=== PATIENT | female | born 2000 | race Caucasian/White ===

== ENCOUNTER 2024-04-05 02:57 | Observation (INO) ==
[2024-04-05] MEDS: PANTOprazole 40 MG/10 ML SYR IV ONE (03:46)
[2024-04-05] MEDS: ACETAMINOPHEN 1,000 MG/100 ML VIAL IV STA (03:46)
[2024-04-05] MEDS: SODIUM CHLORIDE 0.9% 1,000 ML IV ONE (03:46)
[2024-04-05] MEDS: ONDANSETRON INJ 2 MG/ML 2 ML VIAL IV STA ×2 (03:46→06:21)
[2024-04-05 03:55] LABS: Basophils # (auto) 0.07 K/uL (0.00-0.20); Basophils % (auto) 0.5 %; Eosinophils # (auto) 0.09 K/uL (0.00-0.50); Eosinophils % (auto) 0.6 %; Hematocrit (blood only) 37.4 % (37.0-47.0); Hemoglobin 12.5 g/dl (12.0-16.0); Immature Granulocytes # (auto) 0.04 K/uL (0.01-0.20); Immature Granulocytes % (auto) 0.3 %; Lymphocytes # (auto) 4.46 K/uL (1.20-3.40); Mean Corpuscular Hemoglobin 29.9 pg (25.0-34.0); Mean Corpuscular Hgb Conc 33.4 g/dL (32.0-36.0); Mean Corpuscular Volume 89.5 fL (80.0-100.0); Mean Platelet Volume 9.7 fL (9.4-12.4); Neutrophils # (auto) 8.58 K/uL (1.40-6.50); Neutrophils % (auto) 61.6 %; Platelet Count 409 K/uL (130-400); RDW Coefficient of Variation 13.5 % (11.5-14.5); RDW Standard Deviation 44.3 fL (36.4-46.3); Red Blood Count 4.18 M/uL (4.20-5.40); White Blood Count 13.94 K/ul (4.8-10.8)
[2024-04-05 04:13] LABS: Albumin Globulin Ratio 1.4 (0.9-2); Albumin Level 4.6 gm/dl (3.4-5.0); BUN Creatinine Ratio 8.3 (10-20); Bilirubin,Total 0.3 mg/dl (0.2-1.0); Calcium 9.5 mg/dl (8.6-10.3); Creatinine Clr Calc Pharmacy 122.5 ml/min; Globulin 3.2 gm/dl (2.5-4.0); Potassium 4.2 mmol/L (3.5-5.1); Total Protein 7.8 gm/dl (6.0-8.3)
[2024-04-05 04:19] LABS: Troponin I High Sensitivity 3.4 pg/ml (0-14)
[2024-04-05 04:24] LABS: Pregnancy Test, Serum Negative (Negative)
[2024-04-05] MEDS: OPTIRAY 320 125ml IV ONE (04:40)
[2024-04-05 04:57] LABS: Adenovirus PCR Not Detected (NotDetected); Bordetella parapertussis PCR Not Detected (NotDetected); Bordetella pertussis PCR Not Detected (NotDetected); Chlamydia pneumoniae PCR Not Detected (NotDetected); Coronavirus 229E PCR Not Detected (NotDetected); Coronavirus CoV-2 (COVID19)PCR Not Detected (NotDetected); Coronavirus HKU1 PCR Not Detected (NotDetected); Coronavirus NL63 PCR Not Detected (NotDetected); Coronavirus OC43PCR Not Detected (NotDetected); Human Metapneumovirus PCR Not Detected (NotDetected); Influenza A PCR Not Detected (NotDetected); Influenza B PCR Not Detected (NotDetected); Mycoplasma pneumoniae PCR Not Detected (NotDetected); Parainfluenza Virus 1 PCR Not Detected (NotDetected); Parainfluenza Virus 2 PCR Not Detected (NotDetected); Parainfluenza Virus 3 PCR Not Detected (NotDetected); Parainfluenza Virus 4 PCR Not Detected (NotDetected); Respiratory Syncytial VirusPCR Not Detected (NotDetected); Rhinovirus/Enterovirus PCR Not Detected (NotDetected)
--- NOTE | 2024-04-05 05:13 | Emergency Department Note ---
History of Present Illness General Chief complaint: Abdominal Pain Stated complaint: BACK PAIN, UPPER ABD PAIN Time Seen by Provider: 04/05/24 03:15 History of Present Illness Maximum Pain Intensity: 4 This is a 23-year-old female presenting to the emergency department with complaints of back pain radiating into her epigastric region. Patient states that she has had some intermittent symptoms for the past few days, but they are much worse tonight. She does not identify aggravating or alleviating factors. She did not have an appetite for dinner yesterday, but did have a small snack around 10 PM. The patient has not had fevers or chills. No significant nausea or vomiting. She has a history of anemia that is treated with every other day iron supplements. She has history of pseudocholinesterase deficiency. Patient has not had abdominal surgery in the past. Last menstrual period was about 3 weeks ago. Home Medications Medication Instructions Recorded Confirmed Type acetaminophen 500 mg tablet 500 mg PO Q6H PRN Pain 04/05/24 04/05/24 History calcium carbonate 500 mg PO DAILY 04/05/24 04/05/24 History cyproheptadine 4 mg tablet 4 mg PO DAILY 04/05/24 04/05/24 History escitalopram oxalate 10 mg tablet 10 mg PO DAILY 04/05/24 04/05/24 History ferrous sulfate 325 mg (65 mg 325 mg PO DAILY 04/05/24 04/05/24 History iron) tablet ibuprofen 200 mg tablet 200 mg PO Q6H PRN Pain 04/05/24 04/05/24 History norelgestromin 150 mcg-e.estradiol 1 patch topical WK 04/05/24 04/05/24 History 35 mcg/24 hr weekly transderm patch Allergies Allergy/AdvReac Type Severity Reaction Status Date / Time succinylcholine Allergy Severe Unresponsiv Verified 04/05/24 09:46 e cefdinir [From Omnicef] Allergy Rash Verified 04/05/24 09:46 Past Med/Surg History Problem List (Updated 04/06/24 @ 05:54 by Josr Noguera PA-C) Acute cholecystitis (Acute) Pseudocholinesterase deficiency Surgical History No significant past surgical history Social History Smoking Status: Never smoker Hx Alcohol Use: No Hx Substance Use: No Preferred Language: Urdu Communication Ability: Effective Photographic Printer Required: No Beliefs That Will Affect Care: None Current Living Situation: Alone Feels Safe at Home: Yes Safety Concerns: Feels Safe At This Time Assistive Devices: None Review of Systems A total of 10 systems reviewed and were otherwise negative Physical Exam Vital Signs Vital Signs - 24 hr 04/05/24 06:00 04/05/24 06:08 04/05/24 08:05 Temperature Temperature Source Pulse Rate [Finger] Pulse Rate from SpO2 Sensor 76 Respiratory Rate Respiratory Effort / Characteristics Non-Labored Respiratory Depth Normal Respiratory Pattern Blood Pressure 142/94 H 133/88 Blood Pressure [Right Arm] Blood Pressure Mean 106 103 Blood Pressure Mean [Right Arm] Blood Pressure Position [Right Arm] Pulse Oximetry 99 Oxygen Delivery Method 04/05/24 08:36 04/05/24 08:53 04/05/24 09:02 Temperature Temperature Source Pulse Rate [Finger] 68 Pulse Rate from SpO2 Sensor 69 66 Respiratory Rate 20 Respiratory Effort / Characteristics Non-Labored Spontaneous Respiratory Depth Normal Respiratory Pattern Blood Pressure 135/115 H 145/97 H Blood Pressure [Right Arm] 157/93 H Blood Pressure Mean 121 113 Blood Pressure Mean [Right Arm] 114 Blood Pressure Position [Right Arm] Pulse Oximetry 93 99 96 Oxygen Delivery Method Room Air 04/05/24 09:22 04/05/24 09:46 Temperature 36.7 C Temperature Source Oral Pulse Rate [Finger] 81 Pulse Rate from SpO2 Sensor Respiratory Rate 21 Respiratory Effort / Characteristics Non-Labored Spontaneous Respiratory Depth Normal Respiratory Pattern Regular Blood Pressure Blood Pressure [Right Arm] 158/107 H Blood Pressure Mean Blood Pressure Mean [Right Arm] 124 Blood Pressure Position [Right Arm] Sitting Pulse Oximetry 99 Oxygen Delivery Method Room Air Room Air VITALS: Vitals are noted on the nurse's note and reviewed by myself. Vital signs stable. GENERAL: Well-developed, well-nourished, white female, who is in no acute distress and resting comfortably. Patient is cooperative with the examination. HEAD: Normocephalic atraumatic. EARS: External ear normal. External auditory canals clear, tympanic membranes pearly damon without erythema or effusion bilaterally. EYES: Pupils equal round and reactive to light and accommodation. Conjunctivae without injection, sclerae without icterus. Extraocular movements intact. NOSE: Patent, turbinates without inflammation or discharge. MOUTH: Mucous membranes moist. Tonsils are not enlarged. Pharynx without erythema, blood, or exudate. Uvula midline. Airway patent. NECK: Supple without nuchal rigidity. No lymphadenopathy. No thyromegaly. Cervical spine is nontender. HEART: Regular rate and rhythm without murmurs gallops or rubs. LUNGS: Clear to auscultation bilaterally without wheezes, rales or rhonchi. No retractions or accessory muscle use. ABDOMEN: Positive normal bowel sounds x 4. Soft with diffuse tenderness throughout the abdomen on palpation. Tenderness seems to be worse in the right upper quadrant and epigastric region. No CVA tenderness. MUSCULOSKELETAL: No muscle atrophy, erythema, or edema noted. Full range of motion in all extremities. No tenderness to palpation. Normal gait. Strength 5/5 throughout. NEURO: Patient was alert and oriented to person place and time. CN II through XII grossly intact. No focal neurological deficits. Deep tendon reflexes 2+ throughout. SKIN: The skin was without rashes, erythema, edema, or bruising. Capillary refill less than 2 seconds. Course Administered Medications Ketorolac Tromethamine (Ketorolac 30 Mg/Ml Vial) 30 mg IV Q6H PRN PRN Reason: Pain & Pre PT Stop: 04/10/24 13:14 Last Admin: 04/05/24 15:40 Dose: 30 mg Documented By: DEVONTE Morphine Sulfate (Morphine Sulfate 4 Mg/Ml 1 Ml Carp\Vial) 4 mg IV Q30M PRN PRN Reason: Pain Stop: 04/19/24 06:15 Last Admin: 04/05/24 08:54 Dose: 4 mg Documented By: Admin: 04/05/24 06:21 Dose: 4 mg Documented By: DINA Oxycodone/Acetaminophen (Oxycodone/Acetaminophen 5mg/325mg Tab) 1 tab PO Q4H PRN PRN Reason: MODERATE Pain (4,5,6) & Pre PT Stop: 04/19/24 13:14 Last Admin: 04/05/24 17:15 Dose: 1 tab Documented By: Admin: 04/05/24 16:27 Dose: 1 tab Documented By: DEVONTE Oxycodone/Acetaminophen (Oxycodone/Acetaminophen 5mg/325mg Tab) 2 tab PO Q4H PRN PRN Reason: SEVERE Pain (7,8,9,10) Stop: 04/19/24 13:14 Last Admin: 04/05/24 21:06 Dose: 2 tab Documented By: EM Discontinued Medications Bupivacaine HCl/Epinephrine Bitart (Bupivacaine/Epinephrine 0.25% 1:200,000 30 Ml Vial) Confirm Administered Dose 30 ml .ROUTE .STK-MED ONE Stop: 04/05/24 09:33 Last Admin: 04/05/24 11:30 Dose: 30 ml Documented By: MARYELLEN Fentanyl Citrate (Fentanyl Citrate Pf 100 Mcg/2 Ml Vial) 50 mcg IV Q5M PRN PRN Reason: PACU Use Only-Pain Stop: 04/05/24 18:22 Last Admin: 04/05/24 13:46 Dose: 50 mcg Documented By: Admin: 04/05/24 12:37 Dose: 50 mcg Documented By: BRAN Sodium Chloride (Nss) 1,000 mls @ 999 mls/hr IV .Q1H1M ONE Stop: 04/05/24 04:37 Last Infusion: 04/05/24 05:52 Dose: Infused Documented By: Admin: 04/05/24 03:46 Dose: 999 mls/hr Documented By: DINA Acetaminophen (Ofirmev) 1,000 mg in 100 mls @ 400 mls/hr IV NOW STA Stop: 04/05/24 03:51 Last Infusion: 04/05/24 04:00 Dose: Infused Documented By: Admin: 04/05/24 03:46 Dose: 400 mls/hr Documented By: DINA Pantoprazole Sodium (Protonix) 40 mg in 10 mls @ 5 mls/min IV NOW ONE Stop: 04/05/24 03:38 Last Admin: 04/05/24 03:46 Dose: 5 mls/min Documented By: DINA Piperacillin Sod/Tazobactam Sod (Zosyn) 4.5 gm in 100 mls @ 200 mls/hr IV NOW ONE; Protocol Stop: 04/05/24 09:40 Last Infusion: 04/05/24 14:35 Dose: Infused Documented By: Admin: 04/05/24 10:02 Dose: 200 mls/hr Documented By: AUGIE Lactated Ringer's (Lr) 1,000 mls @ 15 mls/hr IV .Q24H [facility] Stop: 04/06/24 09:59 Last Infusion: 04/05/24 14:40 Dose: Infused Documented By: Admin: 04/05/24 10:02 Dose: 15 mls/hr Documented By: AUGIE Ioversol (Optiray 320 125ml) 125 ml IV ONCE ONE Stop: 04/05/24 04:41 Last Admin: 04/05/24 04:40 Dose: 118 ml Documented By: JERMAINE Ondansetron HCl (Ondansetron Inj 2 Mg/Ml 2 Ml Vial) 4 mg IV NOW STA Stop: 04/05/24 03:38 Last Admin: 04/05/24 03:46 Dose: 4 mg Documented By: DINA Ondansetron HCl (Ondansetron Inj 2 Mg/Ml 2 Ml Vial) 4 mg IV NOW STA Stop: 04/05/24 06:17 Last Admin: 04/05/24 06:21 Dose: 4 mg Documented By: DINA Zolpidem Tartrate (Zolpidem Tartrate 5 Mg Tab) 10 mg PO HS ONE Stop: 04/05/24 22:54 Last Admin: 04/05/24 22:57 Dose: 10 mg Documented By: DIVYA Medical Decision Making Differential Diagnosis Differential diagnosis includes, but is not limited to: Myocardial infarction, dysrhythmia, pericarditis, pneumothorax, aortic aneurysm/dissection, DVT/PE, anxiety, GERD, PUD, electrolyte imbalance, thyroid disorder, pneumonia, bronchitis, pancreatitis, and others Laboratory Data 04/05/24 03:40 04/05/24 03:40 Lab Results 04/05/24 04/05/24 04/05/24 Range/Units 03:40 03:54 05:30 WBC 13.94 H (4.8-10.8) K/ul RBC 4.18 L (4.20-5.40) M/uL Hgb 12.5 (12.0-16.0) g/dl Hct 37.4 (37.0-47.0) % MCV 89.5 (80.0-100.0) fL MCH 29.9 (25.0-34.0) pg MCHC 33.4 (32.0-36.0) g/dL RDW Std Deviation 44.3 (36.4-46.3) fL RDW Coeff of Eula 13.5 (11.5-14.5) % Plt Count 409 H (130-400) K/uL MPV 9.7 (9.4-12.4) fL Immature Gran % (Auto) 0.3 % Neut % (Auto) 61.6 % Lymph % (Auto) 32.0 % [place] % (Auto) 5.0 % Eos % (Auto) 0.6 % Baso % (Auto) 0.5 % Neut # (Auto) 8.58 H (1.40-6.50) K/uL Lymph # (Auto) 4.46 H (1.20-3.40) K/uL [place] # (Auto) 0.70 H (0.11-0.59) K/uL Eos # (Auto) 0.09 (0.00-0.50) K/uL Baso # (Auto) 0.07 (0.00-0.20) K/uL Immature Gran # (Auto) 0.04 (0.01-0.20) K/uL Sodium 135 L (136-145) mmol/L Potassium 4.2 (3.5-5.1) mmol/L Chloride 103 (98-107) mmol/L Carbon Dioxide 25 (21-32) mmol/L Anion Gap 7 (3-11) BUN 6 (6-23) mg/dl Creatinine 0.72 (0.6-1.2) mg/dl Est Cr Clr Drug Dosing 122.5 ml/min eGFR 121.92 BUN/Creatinine Ratio 8.3 L (10-20) Glucose 89 (70-99(Fasting)) mg/dl Calcium 9.5 (8.6-10.3) mg/dl Magnesium 2.0 (1.7-2.4) mg/dl Total Bilirubin 0.3 (0.2-1.0) mg/dl AST 30 (13-39) U/L ALT 22 (7-52) U/L Alkaline Phosphatase 54 (34-104) U/L Troponin I High Sens 3.4 (0-14) pg/ml Total Protein 7.8 (6.0-8.3) gm/dl Albumin 4.6 (3.4-5.0) gm/dl Globulin 3.2 (2.5-4.0) gm/dl Albumin/Globulin Ratio 1.4 (0.9-2) Lipase 24 (11-82) U/L HCG, Qual Negative (Negative) Urine Color Yellow Urine Appearance Clear (Clear) Urine pH 6.0 (4.5-7.5) Ur Specific Jay 1.031 H (1.000-1.030) Urine Protein Negative (Negative) Urine Glucose (UA) Negative (Negative) Urine Ketones 1+ H (Negative) Urine Blood Negative (Negative) Urine Nitrite Negative (Negative) Urine Bilirubin Negative (Negative) Urine Urobilinogen Negative (Negative) Ur Leukocyte Esterase Negative (Negative) Adenovirus (PCR) Not Detected (NotDetected) B. pertussis DNA (PCR) Not Detected (NotDetected) B.parapertussis DNA PCR Not Detected (NotDetected) C. pneumoniae DNA (PCR) Not Detected (NotDetected) Coronavirus OC43 (PCR) Not Detected (NotDetected) Coronavirus HKU1 (PCR) Not Detected (NotDetected) Coronavirus 229E (PCR) Not Detected (NotDetected) SARS-CoV-2 (PCR) Not Detected (NotDetected) Coronavirus NL63 (PCR) Not Detected (NotDetected) Human Metapneumovir PCR Not Detected (NotDetected) Influenza Type A (PCR) Not Detected (NotDetected) Influenza Type B (PCR) Not Detected (NotDetected) M. pneumoniae (PCR) Not Detected (NotDetected) Parainfluenza 1 (PCR) Not Detected (NotDetected) Parainfluenza 2 (PCR) Not Detected (NotDetected) Parainfluenza 3 (PCR) Not Detected (NotDetected) Parainfluenza 4 (PCR) Not Detected (NotDetected) RSV (PCR) Not Detected (NotDetected) Entero/Rhino (PCR) Not Detected (NotDetected) Imaging Data Radiologist's Impression: Abdomen/Pelvis CTA 04/05/24 03:37 EXAM: CT angio abdomen pelvis w con CLINICAL HISTORY: 118 ML OPTIRAY 320, PAIN AT MID BACK, RUQ AND RLQ TECHNIQUE: CTA of the abdomen and pelvis was performed with IV contrast. Coronal and sagittal reconstructive images were also obtained. One of these 3D techniques was utilized: Maximum Intensity Pixel (MIP), 3D Reconstructed Images, Volume Rendered Images, Surface Shaded Rendering. Axial non-contrast sections of the abdomen and pelvis were also obtained. One of the following dose reduction techniques was utilized for this exam.Automated exposure control, adjustment of the mA and/or kV according to patient size, and use of iterative reconstruction. CTDI: DLP: COMPARISON: None. FINDINGS: Aorta: The abdominal aorta is normal in caliber. No evidence of aneurysm, dissection, or significant atherosclerotic changes. Aortic bifurcation is unremarkable. Renal Arteries: Renal arteries are normal in size and opacification. No evidence of stenosis or occlusion. Symmetric perfusion of both kidneys. Mesenteric Arteries: Superior mesenteric artery (SMA) and inferior mesenteric artery (RACHAEL) are normal in caliber and opacification. No evidence of stenosis or occlusion. Celiac Artery: Celiac artery is normal in caliber and opacification. No evidence of stenosis or occlusion. Iliac Arteries: Common, internal, and external iliac arteries are normal in caliber and opacification. No evidence of stenosis, aneurysm, or occlusion. Venous Structures: Inferior vena cava (IVC) and major venous structures are normal in caliber and opacification. No evidence of thrombus or obstruction. Liver: Enlarged in size (21cm in span) with normal morphology. Homogeneous enhancement post-contrast. No focal hepatic lesions. Gallbladder and Biliary System: Gallbladder is overdistended. and biliary ducts. No stones or dilatation. Pancreas: Normal size and contour. Homogeneous enhancement post-contrast. No masses or cystic lesions. Spleen: Normal size and appearance. Homogeneous enhancement post-contrast. Adrenal Glands: Normal size and morphology bilaterally. No adrenal masses. Kidneys and Ureters: Normal size, shape, and position of both kidneys. Homogeneous enhancement post-contrast. No renal stones, masses, or hydronephrosis. Ureters are unremarkable. Bladder: Normal in size and wall thickness. No intraluminal masses. Normal enhancement post-contrast. Bowel: Normal appearance of the visualized bowel loops. Fecal loaded large bowel loops are seen. No evidence of obstruction, wall thickening, or abnormal dilatation. Lymph Nodes: No pathologically enlarged lymph nodes in the abdomen or pelvis. Peritoneum: No free fluid or free air in the abdomen. Bones: No lytic or sclerotic lesions. Normal alignment and bone density. Soft Tissues: Normal appearance of the visualized soft tissues. IMPRESSION: Normal CT angiography of the abdomen and pelvis. Hepatomegaly. Fecal loaded large bowel loops are seen. Electronically signed by Radhames Issa 04-05-2024 06:10 AM Chest CTA 04/05/24 03:37 EXAM: CT angio chest dissec wo/w con CLINICAL HISTORY: 118 ML OPTIRAY 320 PAIN AT MID BACK RUQ AND RLQ TECHNIQUE: Contiguous 3.[address] angiographic images of the chest were acquired with the administration of intravenous contrast. Coronal and sagittal reconstructions were obtained. One of these 3D techniques was utilized: Maximum Intensity Pixel (MIP), 3D Reconstructed Images, Volume Rendered Images, Surface Shaded Rendering. One of the following dose reduction techniques were utilized for this exam: Automated exposure control, adjustment of the mA and/or kV according to patient size, and use of iterative reconstruction. CTDI: DLP: COMPARISON: None. FINDINGS: Aorta: The thoracic aorta is normal in caliber. No evidence of aneurysm, dissection, or significant atherosclerotic changes. Aortic arch and descending thoracic aorta are unremarkable. Pulmonary Arteries: Pulmonary arteries are normal in size and opacification. No evidence of pulmonary embolism. No stenosis or filling defects. Superior Vena Cava (SVC) and Inferior Vena Cava (IVC): Normal opacification and caliber. No evidence of thrombus or obstruction. Coronary Arteries: Coronary arteries are well-opacified. No significant stenosis or atherosclerotic changes. Mediastinum: No mediastinal mass or lymphadenopathy. Normal appearance of the thymus. Heart: Normal size and morphology of the heart. No pericardial effusion. Lungs: Lungs are clear with no evidence of consolidation, nodules, or masses. No pleural effusion or thickening. Bones: No fractures or lytic/sclerotic lesions of the visualized bony structures. Normal alignment and bone density. Soft Tissues: Normal appearance of the visualized soft tissues. No abnormal masses or fluid collections. IMPRESSION: Normal CT angiography of the chest. No evidence of aortic dissection. No evidence of significant vascular abnormalities. Electronically signed by Radhames Issa 04-05-2024 06:11 AM MDM Narrative Physical exam and history were performed. Nursing notes, EMR, and Medication List were personally reviewed. No social concerns were identified as barriers to patients care. Patient appears to have pain in her back that is radiating into her abdomen. It is difficult to determine the distinct location of the patient's discomfort as she does have diffuse abdominal tenderness on palpation. The discomfort seems to be worse on the right side. She also has chest discomfort but not distinct shoulder discomfort. IV access was established and labs were obtained. Patient was hydrated with normal saline and given IV Tylenol, IV Protonix, and IV Zofran. She was sent to CT scan for dissection studies, as well as to ultrasound for evaluation of the right upper quadrant. An order was placed for continuous cardiac monitoring. The monitor shows a rate of 82 with normal sinus rhythm. Patient's blood work is as above and was reviewed. She does have a slightly elevated white count of 13.9. She does not have significant anemia or gross electrolyte imbalance. Transaminases not diagnostic. Lipase normal. BioFire negative. She is not and urine is without evidence of infection. Troponin negative. CT scans of the chest and abdomen/pelvis were independently reviewed by myself and radiology. She does not seem to have vascular issue or pneumonia to explain her symptoms. She does have an enlarged gallbladder on the CT. This was further evaluated by ultrasound which was reviewed by myself and suspicious for cholecystitis. Patient remained in stable condition until the time of shift change. Case was discussed with my colleague, Gavin Casey PA-C, who will assume care pending official radiology read of the ultrasound. Please see Mr. Casey's dictation for further patient course, plan, disposition. The chart was completed utilizing [employer] Speech Voice Recognition Software. Grammatical errors, random word insertions, pronoun errors, and incomplete sentences are an occasional consequence of this system due to software limitations, ambient noise, and hardware issues. Any formal questions or concerns about the content, text, or information contained within the body of this dictation should be directly addressed to the provider for clarification. Impression & Plan Acute cholecystitis Discharge Plan Visit Data Chief Complaint: Abdominal Pain Stated Complaint: BACK PAIN, UPPER ABD PAIN ED Provider: Maurizio Hickman ED Midlevel Provider: Gavin Casey Discharge Problem: Acute cholecystitis Patient Disposition: Admitted As Inpatient Discharge Instructions Interventions: ED Discharge Assessment Last Done: 04/05/24 09:22
[2024-04-05 05:59] LABS: Appearance Urine Clear (Clear); Bilirubin Urine Negative (Negative); Blood Urine Negative (Negative); Color Urine Yellow; Glucose Urine UA Negative (Negative); Ketones Urine 1+ (Negative); Leukocyte Esterase Urine Negative (Negative); Nitrite Urine Negative (Negative); Protein Urine Negative (Negative); Specific Gravity Urine 1.031 (1.000-1.030); Urobilinogen Urine Negative (Negative)
--- NOTE | 2024-04-05 06:10 | CT Scan Report ---
EXAM: CT angio abdomen pelvis w con CLINICAL HISTORY: 118 ML OPTIRAY 320, PAIN AT MID BACK, RUQ AND RLQ TECHNIQUE: CTA of the abdomen and pelvis was performed with IV contrast. Coronal and sagittal reconstructive images were also obtained. One of these 3D techniques was utilized: Maximum Intensity Pixel (MIP), 3D Reconstructed Images, Volume Rendered Images, Surface Shaded Rendering. Axial non-contrast sections of the abdomen and pelvis were also obtained. One of the following dose reduction techniques was utilized for this exam.Automated exposure control, adjustment of the mA and/or kV according to patient size, and use of iterative reconstruction. CTDI: DLP: COMPARISON: None. FINDINGS: Aorta: The abdominal aorta is normal in caliber. No evidence of aneurysm, dissection, or significant atherosclerotic changes. Aortic bifurcation is unremarkable. Renal Arteries: Renal arteries are normal in size and opacification. No evidence of stenosis or occlusion. Symmetric perfusion of both kidneys. Mesenteric Arteries: Superior mesenteric artery (SMA) and inferior mesenteric artery (RACHAEL) are normal in caliber and opacification. No evidence of stenosis or occlusion. Celiac Artery: Celiac artery is normal in caliber and opacification. No evidence of stenosis or occlusion. Iliac Arteries: Common, internal, and external iliac arteries are normal in caliber and opacification. No evidence of stenosis, aneurysm, or occlusion. Venous Structures: Inferior vena cava (IVC) and major venous structures are normal in caliber and opacification. No evidence of thrombus or obstruction. Liver: Enlarged in size (21cm in span) with normal morphology. Homogeneous enhancement post-contrast. No focal hepatic lesions. Gallbladder and Biliary System: Gallbladder is overdistended. and biliary ducts. No stones or dilatation. Pancreas: Normal size and contour. Homogeneous enhancement post-contrast. No masses or cystic lesions. Spleen: Normal size and appearance. Homogeneous enhancement post-contrast. Adrenal Glands: Normal size and morphology bilaterally. No adrenal masses. Kidneys and Ureters: Normal size, shape, and position of both kidneys. Homogeneous enhancement post-contrast. No renal stones, masses, or hydronephrosis. Ureters are unremarkable. Bladder: Normal in size and wall thickness. No intraluminal masses. Normal enhancement post-contrast. Bowel: Normal appearance of the visualized bowel loops. Fecal loaded large bowel loops are seen. No evidence of obstruction, wall thickening, or abnormal dilatation. Lymph Nodes: No pathologically enlarged lymph nodes in the abdomen or pelvis. Peritoneum: No free fluid or free air in the abdomen. Bones: No lytic or sclerotic lesions. Normal alignment and bone density. Soft Tissues: Normal appearance of the visualized soft tissues. IMPRESSION: Normal CT angiography of the abdomen and pelvis. Hepatomegaly. Fecal loaded large bowel loops are seen. Electronically signed by Radhames Issa 04-05-2024 06:10 AM
--- NOTE | 2024-04-05 06:11 | CT Scan Report ---
EXAM: CT angio chest dissec wo/w con CLINICAL HISTORY: 118 ML OPTIRAY 320 PAIN AT MID BACK RUQ AND RLQ TECHNIQUE: Contiguous 3.[address] angiographic images of the chest were acquired with the administration of intravenous contrast. Coronal and sagittal reconstructions were obtained. One of these 3D techniques was utilized: Maximum Intensity Pixel (MIP), 3D Reconstructed Images, Volume Rendered Images, Surface Shaded Rendering. One of the following dose reduction techniques were utilized for this exam: Automated exposure control, adjustment of the mA and/or kV according to patient size, and use of iterative reconstruction. CTDI: DLP: COMPARISON: None. FINDINGS: Aorta: The thoracic aorta is normal in caliber. No evidence of aneurysm, dissection, or significant atherosclerotic changes. Aortic arch and descending thoracic aorta are unremarkable. Pulmonary Arteries: Pulmonary arteries are normal in size and opacification. No evidence of pulmonary embolism. No stenosis or filling defects. Superior Vena Cava (SVC) and Inferior Vena Cava (IVC): Normal opacification and caliber. No evidence of thrombus or obstruction. Coronary Arteries: Coronary arteries are well-opacified. No significant stenosis or atherosclerotic changes. Mediastinum: No mediastinal mass or lymphadenopathy. Normal appearance of the thymus. Heart: Normal size and morphology of the heart. No pericardial effusion. Lungs: Lungs are clear with no evidence of consolidation, nodules, or masses. No pleural effusion or thickening. Bones: No fractures or lytic/sclerotic lesions of the visualized bony structures. Normal alignment and bone density. Soft Tissues: Normal appearance of the visualized soft tissues. No abnormal masses or fluid collections. IMPRESSION: Normal CT angiography of the chest. No evidence of aortic dissection. No evidence of significant vascular abnormalities. Electronically signed by Radhames Issa 04-05-2024 06:11 AM
[2024-04-05] MEDS: MoRPHine SULFATE 4 MG/ML 1 ML CARP\\VIAL IV PRN (06:21)
--- NOTE | 2024-04-05 07:03 | Ultrasound Report ---
EXAM: US gallbladder CLINICAL HISTORY: PREV CT 04/05/24. RUQ PAIN. TECHNIQUE: An ultrasound examination of the RUQ was performed using a high-frequency transducer in realtime and duplex. COMPARISON: CT dated 04/05/2024. FINDINGS: Liver: The liver is enlarged, measuring 21.7 cm in length. The liver appears normal in size with homogeneous echotexture. No evidence of focal lesions, cysts, or masses. Hepatic vasculature appears normal. Gallbladder: Sludge and gallstones are seen in the gallbladder. An immobile shadowing calculus is seen in the gallbladder neck measuring 4 mm. A trace of pericholecystic fluid is seen. The gallbladder wall measures 3.1 mm in thickness. Biliary Tree: Common bile duct diameter: 2.3 mm. The common bile duct is within normal limits in caliber and not dilated. No evidence of choledocholithiasis or biliary obstruction. Right Kidney: No evidence of hydronephrosis. Pancreas: The visualized pancreas appears normal. However, the evaluation is limited due to overlying bowel gas. IMPRESSION: 1. Sludge and gallstones are seen in the gallbladder, with an immobile shadowing calculus in the gallbladder neck measuring 4 mm, with a trace of pericholecystic fluid. The gallbladder wall however measures 3 mm in thickness. Imaging appearances are suggestive of acute cholecystitis. Clinical correlation is suggested. 2. No evidence of biliary dilatation (stable). 3. Enlarged liver (stable). Electronically signed by Cuong Aparicio 04-05-2024 07:03 AM
--- NOTE | 2024-04-05 07:19 | Emergency Department Note ---
ED Visit Note Patient case signed out to me at 0700 hrs. on 04/05/2024 at shift change from Josr Noguera PA-C. Please refer to his note regarding presentation and findings up until point of signout. At that time patient was pending gallbladder ultrasound. Ultrasound resulted and is as below. I discussed presentation with the on-call general surgery service, Dr. Kwan. He came to evaluate the patient. Please refer to further documentation regarding her stay. General surgery did recommended antibiotics. Initially Cipro/Flagyl considered noting the patient's Omnicef allergy. I reviewed the boxed warning for ciprofloxacin with the patient as well as benefits/risks of the antibiotics. However upon further discussion with the patient she notes that it was a suspected small rash to the abdomen as a child w/ cefdinir. No anaphylaxis. No SJS or skin peeling. Patient was able to verify with her mother that they believe she has tolerated amoxicillin/penicillins before without issue. At this time through shared medical decision making with the patient it is felt that the benefit of Zosyn outweighs the risk for antibiotic coverage of the acute cholecystitis. It is felt that the risk of Cipro outweighs benefit at this time. Patient taken to the operative suite for further evaluation and management. Please refer to further documentation regarding her stay. EXAM: US gallbladder CLINICAL HISTORY: PREV CT 04/05/24. RUQ PAIN. TECHNIQUE: An ultrasound examination of the RUQ was performed using a high-frequency transducer in realtime and duplex. COMPARISON: CT dated 04/05/2024. FINDINGS: Liver: The liver is enlarged, measuring 21.7 cm in length. The liver appears normal in size with homogeneous echotexture. No evidence of focal lesions, cysts, or masses. Hepatic vasculature appears normal. Gallbladder: Sludge and gallstones are seen in the gallbladder. An immobile shadowing calculus is seen in the gallbladder neck measuring 4 mm. A trace of pericholecystic fluid is seen. The gallbladder wall measures 3.1 mm in thickness. Biliary Tree: Common bile duct diameter: 2.3 mm. The common bile duct is within normal limits in caliber and not dilated. No evidence of choledocholithiasis or biliary obstruction. Right Kidney: No evidence of hydronephrosis. Pancreas: The visualized pancreas appears normal. However, the evaluation is limited due to overlying bowel gas. IMPRESSION: 1. Sludge and gallstones are seen in the gallbladder, with an immobile shadowing calculus in the gallbladder neck measuring 4 mm, with a trace of pericholecystic fluid. The gallbladder wall however measures 3 mm in thickness. Imaging appearances are suggestive of acute cholecystitis. Clinical correlation is suggested. 2. No evidence of biliary dilatation (stable). 3. Enlarged liver (stable). Electronically signed by Cuong Aparicio 04-05-2024 07:03 AM .
--- NOTE | 2024-04-05 08:38 | History & Physical Report ---
Date of Service April 05, 2024 Assessment & Plan (1) Acute cholecystitis: Plan: 23-year-old woman with acute cholecystitis. I discussed the risks and benefits of a laparoscopic cholecystectomy with her. All her questions were answered and she is agreeable to proceed. Will take her to the operating room at the earliest convenience. Consent has been obtained. She will be placed on antibiotics and IV fluids. Pain control. History of Present Illness Primary Care Provider: Lynn Zafar PA-C 23-year-old woman presents with a 2-week history of pain in her right upper quadrant radiating to her back. These episodes of becoming in waves and lasting for a few hours at a time. Last night she developed severe pain in her epigastric region and right upper quadrant radiating to her back and up to her right shoulder that has lasted through until today. She did have nausea associated with this. Her last meal was 10 PM last night. She denies fevers and chills. Ultrasound demonstrates acute cholecystitis with a stone in the neck of the gallbladder. Allergies Allergy/AdvReac Type Severity Reaction Status Date / Time succinylcholine Allergy Severe Unresponsiv Verified 04/05/24 04:11 e cefdinir [From Omnicef] Allergy Rash Verified 04/05/24 04:07 Past Med/Surg History Problem List (Updated 04/05/24 @ 08:39 by Fortunato Kwan MD) Acute cholecystitis Pseudocholinesterase deficiency Surgical History No significant past surgical history Social History Smoking Status: Never smoker Preferred Language: [place] Feels Safe at Home: Yes Review of Systems Review of Systems: All systems reviewed & are unremarkable except as noted in HPI & below Physical Exam Constitutional: WD/WN, vitals as above Eyes: PERRL, conjunctivae normal, anicteric sclerae Neck: trachea midline, no thyromegaly Respiratory: normal respiratory effort; no respiratory distress and no labored breathing Cardiovascular: Rate/Rhythm: regular rate and regular rhythm Gastrointestinal (Abdomen): Inspection/Auscultation: abdomen normal to inspection; abdomen not distended Percussion/Palpation: + abdomen tender ( RUQ) and abdomen soft; no guarding and abdomen not rigid Skin: no rashes, warm and dry Psychiatric: A+Ox3, euthymic affect Results & Data Results & Data Vital Signs (Past 12 Hours) Vital Signs Temp Pulse Resp BP Pulse Ox O2 Del Method 04/05/24 06:08 142/94 H 04/05/24 05:09 100 04/05/24 05:06 100 04/05/24 04:51 100 04/05/24 04:45 100 04/05/24 04:36 144/76 H 04/05/24 04:36 144/76 H 04/05/24 04:15 70 20 99 04/05/24 04:12 76 18 95 04/05/24 03:50 66 04/05/24 03:38 Room Air 04/05/24 03:09 36.6 C 80 17 156/93 H 99 Room Air Laboratory Results 04/05/24 04/05/24 04/05/24 Range/Units 05:30 03:54 03:40 WBC 13.94 H (4.8-10.8) K/ul RBC 4.18 L (4.20-5.40) M/uL Hgb 12.5 (12.0-16.0) g/dl Hct 37.4 (37.0-47.0) % MCV 89.5 (80.0-100.0) fL MCH 29.9 (25.0-34.0) pg MCHC 33.4 (32.0-36.0) g/dL RDW Std Deviation 44.3 (36.4-46.3) fL RDW Coeff of [place] 13.5 (11.5-14.5) % Plt Count 409 H (130-400) K/uL MPV 9.7 (9.4-12.4) fL Immature Gran % (Auto) 0.3 % Neut % (Auto) 61.6 % Lymph % (Auto) 32.0 % Dale % (Auto) 5.0 % Eos % (Auto) 0.6 % Baso % (Auto) 0.5 % Neut # (Auto) 8.58 H (1.40-6.50) K/uL Lymph # (Auto) 4.46 H (1.20-3.40) K/uL Dale # (Auto) 0.70 H (0.11-0.59) K/uL Eos # (Auto) 0.09 (0.00-0.50) K/uL Baso # (Auto) 0.07 (0.00-0.20) K/uL Immature Gran # (Auto) 0.04 (0.01-0.20) K/uL Sodium 135 L (136-145) mmol/L Potassium 4.2 (3.5-5.1) mmol/L Chloride 103 (98-107) mmol/L Carbon Dioxide 25 (21-32) mmol/L Anion Gap 7 (3-11) BUN 6 (6-23) mg/dl Creatinine 0.72 (0.6-1.2) mg/dl Est Cr Clr Drug Dosing 122.5 ml/min eGFR 121.92 BUN/Creatinine Ratio 8.3 L (10-20) Glucose 89 (70-99(Fasting)) mg/dl Calcium 9.5 (8.6-10.3) mg/dl Magnesium 2.0 (1.7-2.4) mg/dl Total Bilirubin 0.3 (0.2-1.0) mg/dl AST 30 (13-39) U/L ALT 22 (7-52) U/L Alkaline Phosphatase 54 (34-104) U/L Troponin I High Sens 3.4 (0-14) pg/ml Total Protein 7.8 (6.0-8.3) gm/dl Albumin 4.6 (3.4-5.0) gm/dl Globulin 3.2 (2.5-4.0) gm/dl Albumin/Globulin Ratio 1.4 (0.9-2) Lipase 24 (11-82) U/L HCG, Qual Negative (Negative) Urine Color Yellow Urine Appearance Clear (Clear) Urine pH 6.0 (4.5-7.5) Ur Specific [place] 1.031 H (1.000-1.030) Urine Protein Negative (Negative) Urine Glucose (UA) Negative (Negative) Urine Ketones 1+ H (Negative) Urine Blood Negative (Negative) Urine Nitrite Negative (Negative) Urine Bilirubin Negative (Negative) Urine Urobilinogen Negative (Negative) Ur Leukocyte Esterase Negative (Negative) Adenovirus (PCR) Not Detected (NotDetected) B. pertussis DNA (PCR) Not Detected (NotDetected) B.parapertussis DNA PCR Not Detected (NotDetected) C. pneumoniae DNA (PCR) Not Detected (NotDetected) Coronavirus OC43 (PCR) Not Detected (NotDetected) Coronavirus HKU1 (PCR) Not Detected (NotDetected) Coronavirus 229E (PCR) Not Detected (NotDetected) SARS-CoV-2 (PCR) Not Detected (NotDetected) Coronavirus NL63 (PCR) Not Detected (NotDetected) Human Metapneumovir PCR Not Detected (NotDetected) Influenza Type A (PCR) Not Detected (NotDetected) Influenza Type B (PCR) Not Detected (NotDetected) M. pneumoniae (PCR) Not Detected (NotDetected) Parainfluenza 1 (PCR) Not Detected (NotDetected) Parainfluenza 2 (PCR) Not Detected (NotDetected) Parainfluenza 3 (PCR) Not Detected (NotDetected) Parainfluenza 4 (PCR) Not Detected (NotDetected) RSV (PCR) Not Detected (NotDetected) Entero/Rhino (PCR) Not Detected (NotDetected) Diagnostic Findings EXAM: US gallbladder CLINICAL HISTORY: PREV CT 04/05/24. RUQ PAIN. TECHNIQUE: An ultrasound examination of the RUQ was performed using a high-frequency transducer in realtime and duplex. COMPARISON: CT dated 04/05/2024. FINDINGS: Liver: The liver is enlarged, measuring 21.7 cm in length. The liver appears normal in size with homogeneous echotexture. No evidence of focal lesions, cysts, or masses. Hepatic vasculature appears normal. Gallbladder: Sludge and gallstones are seen in the gallbladder. An immobile shadowing calculus is seen in the gallbladder neck measuring 4 mm. A trace of pericholecystic fluid is seen. The gallbladder wall measures 3.1 mm in thickness. Biliary Tree: Common bile duct diameter: 2.3 mm. The common bile duct is within normal limits in caliber and not dilated. No evidence of choledocholithiasis or biliary obstruction. Right Kidney: No evidence of hydronephrosis. Pancreas: The visualized pancreas appears normal. However, the evaluation is limited due to overlying bowel gas. IMPRESSION: 1. Sludge and gallstones are seen in the gallbladder, with an immobile shadowing calculus in the gallbladder neck measuring 4 mm, with a trace of pericholecystic fluid. The gallbladder wall however measures 3 mm in thickness. Imaging appearances are suggestive of acute cholecystitis. Clinical correlation is suggested. 2. No evidence of biliary dilatation (stable). 3. Enlarged liver (stable). Electronically signed by Cuong Aparicio 04-05-2024 07:03 AM Dictated: 04/05/24 0610 Transcribed:
[2024-04-05] MEDS ORDERED: ePHEDrine sulfate 50 MG/ML AMP ONE (09:23)
[2024-04-05] MEDS ORDERED: MIDAZOLAM HCL 1 MG/ML 2ML VIAL ONE (09:25)
[2024-04-05] MEDS ORDERED: fentaNYL citrate PF 100 MCG/2 ML VIAL ONE ×3 (09:25→11:11)
[2024-04-05] MEDS ORDERED: PROPOFOL IV EMULSION 10 MG/ML 20 ML VIAL IV ONE (09:26)
[2024-04-05] MEDS ORDERED: LIDOCAINE 2% 2 ML VIAL/AMP(20MG/ML) INFIL ONE ×2 (09:26)
[2024-04-05] MEDS ORDERED: ROCURONIUM BROMIDE 10 MG/ML 5 ML VIAL IV ONE (09:26)
[2024-04-05] MEDS ORDERED: ONDANSETRON INJ 2 MG/ML 2 ML VIAL ONE ×2 (09:27)
[2024-04-05] MEDS ORDERED: DEXAMETHASONE SOD INJ 4 MG/ML VIAL ONE (09:30)
[2024-04-05] MEDS: PIPERACILLIN/TAZOBACTAM 4.5 GM/100 ML BAG IV ONE (10:02)
[2024-04-05] MEDS: LACTATED RINGER'S 1,000 ML IV SCH (10:02)
--- NOTE | 2024-04-05 10:21 | Anesthesiology Consultation ---
Date of Service April 05, 2024 Assessment & Plan Chart Review Chart Review: Acceptable Risk for Surgery Consults Requested none History Surgery Operation Date: 04/05/24 11:20 Proposed Procedures p Laparoscopic Cholecystectomy - Fortunato Kwan MD Height/Weight Height: 5 ft 10 in Weight: 62.8 kg Allergies Allergy/AdvReac Type Severity Reaction Status Date / Time succinylcholine Allergy Severe Unresponsiv Verified 04/05/24 09:46 e cefdinir [From Omnicef] Allergy Rash Verified 04/05/24 09:46 Medications Home Medications Medication Instructions Recorded Confirmed Last Taken acetaminophen 500 mg tablet 500 mg PO Q6H PRN Pain 04/05/24 04/05/24 04/04/24 calcium carbonate 500 mg PO DAILY 04/05/24 04/05/24 04/04/24 cyproheptadine 4 mg tablet 4 mg PO DAILY 04/05/24 04/05/24 04/04/24 escitalopram oxalate 10 mg tablet 10 mg PO DAILY 04/05/24 04/05/24 04/04/24 ferrous sulfate 325 mg (65 mg 325 mg PO DAILY 04/05/24 04/05/24 04/04/24 iron) tablet ibuprofen 200 mg tablet 200 mg PO Q6H PRN Pain 04/05/24 04/05/24 04/04/24 norelgestromin 150 mcg-e.estradiol 1 patch topical WK 04/05/24 04/05/24 Unknown 35 mcg/24 hr weekly transderm patch Active Medications Generic Name Dose Route Start Last Admin Trade Name Freq PRN Reason Stop Dose Admin Lactated Ringer's 1,000 mls @ 15 mls/hr 04/05/24 10:00 04/05/24 10:02 Lr IV 04/06/24 09:59 15 mls/hr .Q24H SHELBY Administration Morphine Sulfate 4 mg 04/05/24 06:16 04/05/24 08:54 Morphine Sulfate 4 Mg/Ml 1 Ml Carp\Vial IV 04/19/24 06:15 4 mg Q30M PRN Administration Pain NPO Date Last Intake of Fluids: 04/05/24 Time Last Intake of Fluids: 02:45 Date Last Intake of Solids: 04/04/24 Time Last Intake of Solids: 22:30 Past Surgical History Surgical History No significant past surgical history Social History Smoking Status: Never smoker Physical Exam Vital Signs Last Vital Signs Temp 36.7 C 04/05/24 09:46 Pulse 81 04/05/24 09:46 Resp 21 04/05/24 09:46 BP 158/107 H 04/05/24 09:46 Pulse Ox 99 04/05/24 09:46 O2 Del Method Room Air 04/05/24 09:46 Testing Laboratory Results 04/05/24 03:40 04/05/24 03:40 Urine Color Yellow 04/05/24 05:30 Urine Appearance Clear (Clear) 04/05/24 05:30 Urine pH 6.0 (4.5-7.5) 04/05/24 05:30 Ur Specific [place] 1.031 (1.000-1.030) H 04/05/24 05:30 Urine Protein Negative (Negative) 04/05/24 05:30 Urine Glucose (UA) Negative (Negative) 04/05/24 05:30 Urine Ketones 1+ (Negative) H 04/05/24 05:30 Urine Nitrite Negative (Negative) 04/05/24 05:30 Ur Leukocyte Esterase Negative (Negative) 04/05/24 05:30
[2024-04-05] MEDS ORDERED: DROPERIDOL 5 MG/2 ML VIAL IV PRN (10:22)
[2024-04-05] MEDS ORDERED: ePHEDrine sulfate 50 MG/ML AMP IV PRN (10:22)
[2024-04-05] MEDS ORDERED: ONDANSETRON INJ 2 MG/ML 2 ML VIAL IV PRN ×2 (10:22→13:15)
[2024-04-05] MEDS ORDERED: ATROPINE SULFATE 0.1 MG/ML 10ML SYR IV PRN (10:22)
[2024-04-05] MEDS ORDERED: HYDROmorphone INJ 2 MG/ML SYR/VIAL IV PRN (10:22)
[2024-04-05] MEDS ORDERED: SUGAMMADEX SODIUM 200 MG/2 ML VIAL IV ONE (11:19)
[2024-04-05] MEDS ORDERED: KETOROLAC 30 MG/ML VIAL ONE (11:19)
--- NOTE | 2024-04-05 11:29 | Electrocardiogram Report ---
Test Reason : Blood Pressure : */* mmHG Vent. Rate : 67 BPM Atrial Rate : 67 BPM P-R Int : 144 ms QRS Dur : 86 ms QT Int : 432 ms P-R-T Axes : 66 69 51 degrees QTcB Int : 456 ms Normal sinus rhythm Normal ECG No previous ECGs available Confirmed by Gamal Garcia ([id number]) on 04/05/2024 11:29:12 AM Referred By: REFERRED SELF Confirmed By: Gamal Garcia
[2024-04-05] MEDS: BUPIVACAINE/EPINEPHRINE 0.25% 1:200,000 30 ML VIAL ONE (11:30)
--- NOTE | 2024-04-05 11:46 | Operative Report ---
Post Operative Report Pre & Post Diagnosis Operation Date: 04/05/24 11:20 Pre-Op Diagnosis: Acute cholecystitis Post-Op Diagnosis: Acute cholecystitis I identified the patient and participated in the time-out.: Yes Procedure Operation Date: 04/05/24 11:20 Actual Procedures p Laparoscopic Cholecystectomy(Not Applicable) - Fortunato Kwan MD Surgeon Fortunato Kwan MD Data Integration Architect None Estimated Blood Loss 5 Findings Consistent with Post-Op Diagnosis acute cholecystitis Specimens gallbladder Drains none Anesthesia Type General Complications none Description of Procedure the patient was taken to the operating room, and placed supine on the operating table. A timeout was performed, perioperative antibiotics were administered, SCD boots were placed. After adequate anesthesia and analgesia was obtained, the abdomen was prepped and draped in the normal sterile fashion. Local anesthetic was injected into and around the proposed incision sites. An incision was made with a 15 blade scalpel in the supraumbilical region and carried down to the level of the fascia. The fascia was grasped with a trach hook, and a varies needle was used to enter the abdominal cavity. The abdomen was insufflated to a pressure of 15 mmHg, and a 11 mm trocar was placed in this location. A 10 mm, 30 degree laparoscope was placed into the abdominal cavity, and the abdomen was surveyed. Two 5 mm trochars were placed along the right costal margin, and one 5 mm trocar was placed in the subxiphoid region under direct visualization. The gallbladder was grasped and retracted cephalad and laterally, exposing the triangle of [place]. Dissection began in the triangle with a combination of blunt dissection with the [place] dissector, and judicious use of the hook cautery. The cystic duct and cystic artery were dissected free circumferentially, and a critical view of safety was obtained. The cystic duct and cystic artery were clipped and transected, and the gallbladder was removed from the gallbladder fossa with the hook cautery. The camera was switched to a 5 mm, the gallbladder was placed in an Endo Catch bag, and removed via the supraumbilical port site. The camera was switched back to the 10 mm camera, and the abdomen was surveyed again. Hemostasis was checked and attended, and was excellent. The abdomen was copiously irrigated and suctioned free. Again hemostasis was checked and was excellent. All trochars were removed under direct visualization. The abdomen was desufflated. The fascia in the 11 mm port site was closed with a 0 Vicryl suture. The skin was closed with a running 4-0 Monocryl subcuticular stitch. Dermabond was applied. The patient tolerated the procedure without complication, and was transferred in stable condition to the PACU. All inst rument, needle, and sponge counts were correct at the end of the case. I attest to the content of the Intraoperative Record and any orders documented therein. Any exceptions are noted below.
[2024-04-05] MEDS: fentaNYL citrate PF 100 MCG/2 ML VIAL IV PRN (12:37)
--- NOTE | 2024-04-05 12:39 | Anesthesiology Progress Note ---
Date of Service April 05, 2024 Anesthesia Post Procedure Vital Signs Vital Signs: Temp Pulse Pulse Pulse Resp BP BP 04/05/24 12:30 37.2 C 90 15 151/96 H 04/05/24 12:20 93 H 15 151/99 H 04/05/24 12:10 87 15 159/88 H 04/05/24 12:00 89 14 153/87 H 04/05/24 11:53 37.1 C 103 H 13 149/85 H 04/05/24 09:46 36.7 C 81 21 158/107 H 04/05/24 09:22 04/05/24 09:02 145/97 H 04/05/24 08:53 68 20 157/93 H 04/05/24 08:36 135/115 H 04/05/24 08:05 133/88 04/05/24 06:08 142/94 H 04/05/24 05:09 04/05/24 05:06 04/05/24 04:51 04/05/24 04:45 04/05/24 04:36 144/76 H 04/05/24 04:36 144/76 H 04/05/24 04:15 70 20 04/05/24 04:12 76 18 04/05/24 03:50 66 04/05/24 03:38 04/05/24 03:09 36.6 C 80 17 156/93 H Pulse Ox O2 Del Method O2 Flow Rate 04/05/24 12:30 96 Room Air 04/05/24 12:20 97 Oxymask 2 04/05/24 12:10 99 Oxymask 4 04/05/24 12:00 100 Oxymask 4 04/05/24 11:53 100 Oxymask 4 04/05/24 09:46 99 Room Air 04/05/24 09:22 Room Air 04/05/24 09:02 96 04/05/24 08:53 99 Room Air 04/05/24 08:36 93 04/05/24 08:05 99 04/05/24 06:08 04/05/24 05:09 100 04/05/24 05:06 100 04/05/24 04:51 100 04/05/24 04:45 100 04/05/24 04:36 04/05/24 04:36 04/05/24 04:15 99 04/05/24 04:12 95 04/05/24 03:50 04/05/24 03:38 Room Air 04/05/24 03:09 99 Room Air Pain Intensity Abdomen: Pain Intensity: 4 Transfer of Care Handoff Completed per policy Notes Mental Status: alert / awake / arousable and participated in evaluation Patient Amnestic to Procedure: Yes Nausea / Vomiting: adequately controlled Pain: adequately controlled Airway Patency, RR, SpO2: stable & adequate BP & HR: stable & adequate Hydration State: stable & adequate Anesthetic Complications: no major complications apparent
[2024-04-05] MEDS ORDERED: diphenhydrAMINE Capsule 25 MG CAP PO PRN (13:15)
[2024-04-05] MEDS ORDERED: PROMETHAZINE 12.5 MG/50.5 ML BAG IV PRN (13:15)
[2024-04-05] MEDS ORDERED: MoRPHine SULFATE 2 MG/ML CARP IV PRN (13:15)
[2024-04-05] MEDS: KETOROLAC 30 MG/ML VIAL IV PRN (15:40)
[2024-04-05] MEDS: oxyCODONE/ACETAMINOPHEN 5mg/325mg TAB PO PRN ×2 (16:27→21:06)
[2024-04-05] MEDS: ZOLPIDEM TARTRATE 5 MG TAB PO ONE (22:57)
[2024-04-06 06:51] VITALS: BP 109/66; PULSE 80; RESP 18; TEMP 98.2; O2SAT 96
--- NOTE | 2024-04-06 09:27 | Discharge Summary ---
Date of Service April 06, 2024 Admission HPI Per Admitting Provider 23-year-old woman presents with a 2-week history of pain in her right upper quadrant radiating to her back. These episodes of becoming in waves and lasting for a few hours at a time. Last night she developed severe pain in her epigastric region and right upper quadrant radiating to her back and up to her right shoulder that has lasted through until today. She did have nausea associated with this. Her last meal was 10 PM last night. She denies fevers and chills. Ultrasound demonstrates acute cholecystitis with a stone in the neck of the gallbladder. Principal Diagnosis Acute cholecystitis Discharge Data Allergies Allergy/AdvReac Type Severity Reaction Status Date / Time succinylcholine Allergy Severe Unresponsiv Verified 04/05/24 09:46 e cefdinir [From Omnicef] Allergy Rash Verified 04/05/24 09:46 Procedures Performed Operation Date: 04/05/24 11:20 Actual Procedures p Laparoscopic Cholecystectomy(Not Applicable) - Fortunato Kwan MD Ordered Studies 04/05/24 03:37 CT angio abdomen pelvis w con Stat CT angio chest dissec wo/w con Stat US gallbladder Stat Hospital Course (1) Acute cholecystitis: 23-year-old woman seen in the emergency department noted to have acute cholecystitis. She was taken to the operating room and underwent laparoscopic cholecystectomy, the details of which are dictated in a separate operative note. Postoperatively she was transferred in stable condition to the PACU and subsequently to the floor. Throughout her hospital stay, her diet was advanced as tolerated. Pain was controlled with IV and subsequently p.o. pain medications. DVT prophylaxis with early ambulation and SCD boots. Aggressive pulmonary toilet. By the day of discharge, she is tolerating regular diet, not requiring any IV pain medications, and was discharged home in stable condition. She will follow-up in clinic in 2 weeks. Total Time Total Time Spent Total Time Spent (In Minutes): 30 Discharge Plan Discharge Items Patient Disposition: Home - Self-Care Reason For Visit: ACUTE CHOLECYSTITIS Discharge Diagnosis: acute cholecystitis Activity: Per Instructions section Sexual Activity: Wait until after follow-up appointment Exercise/Sports: Wait until after follow-up appointment Non-emergency contact: Surgeon Call non-emergency contact if: you have any medication questions, your symptoms worsen, your pain is not controlled, your pain is worsening, your pain is unusual for you, your temperature is above 101.5, your wound has increased redness, your wound has increased drainage and your wound pain has increased Follow-up/Referrals: Lynn Zafar [Other] Diet: Regular Addtl Attending Provider Instructions: Post-Surgical ~Discharge Instructions Activity Recommendations: - lifting limitation: (20 pounds for 2 weeks), - exercise/sex/sports limit: (nonstrenuous for 2 weeks), - driving or machine use limit: (none for 1 week), - Shower/bathe limit: (may shower beginning tomorrow) Diet: - Resume previous diet SPECIAL CARE INSTRUCTIONS: - May shower in 24 hours. Let water run over area and pat dry. - Leave Dermabond in place. - Call the surgeon's office with any questions or concerns - - (ex. temperature higher than 101 degrees F, excessive bleeding or pain). MEDICATIONS: - Resume previous medications unless instructed otherwise by your surgeon. - Ibuprofen 600 mg every 6 hours with food - Percocet 1 every 4 hours, as needed for pain FOLLOW UP VISIT: - If not already scheduled, please call the office to schedule a two week follow-up appointment. Office number Pending Studies at Discharge: No Stand-Alone Forms: My [facility], Smoking Cessation Medications and DC Order Prescriptions: New oxycodone-acetaminophen [Percocet] 5-325 mg tablet 1 tab PO Q6H PRN (Reason: pain) Qty: 10 0RF Continued acetaminophen [Tylenol Ex Str Rapid Release] 500 mg Tablet 500 mg PO Q6H PRN (Reason: Pain) cyproheptadine 4 mg tablet 4 mg PO DAILY calcium carbonate [Calcium 500] 500 mg calcium (1,250 mg) Tablet 500 mg PO DAILY ferrous sulfate 325 mg (65 mg iron) Tablet 325 mg PO DAILY ibuprofen 200 mg Tablet 200 mg PO Q6H PRN (Reason: Pain) norelgestromin-ethin.estradiol 150-35 mcg/24 hr patch weekly 1 patch topical WK escitalopram oxalate 10 mg tablet 10 mg PO DAILY Discharge Orders: Discharge Order (Routine); Ordered 04/06/24 Ordered By: Fortunato Kwan Admission Data Admit Date/Time: 04/05/24 11:49 Attending Provider: Fortunato Kwan Admit Provider: Fortunato Kwan Primary Care Provider: Lynn Zafar
== END 2024-04-06 10:40 | disposition home or self-care (01) ==
LOC: ED 02:57 → PACUINP 09:22 → OR 12:28 → 3N 14:25

== ENCOUNTER 2024-04-09 08:48 | Observation (INO) ==
--- NOTE | 2024-04-09 09:22 | Emergency Department Note ---
History of Present Illness General Chief complaint: Illness Stated complaint: RECENT SURG, NAUSEA/VOMITING, BURNING PEE,RT ABD P Time Seen by Provider: 04/09/24 08:57 History of Present Illness Maximum Pain Intensity: 8 This is a 23-year-old female who presents to the emergency department via private vehicle with complaints of "nausea/vomiting, dysuria, right sided abdominal pain". The patient notes that she underwent cholecystectomy on 04/05/2024. The patient states that she was doing well postoperatively but then developed abdominal discomfort with movements around 10 AM on Monday. Pain has been increasing since that time but did briefly improve on Monday. Has had some bowel movement since then without issue. Passing gas as well. She did note Monday the pain went to 10/10 and is generalized in the upper and right upper quadrant area. She also notes what she describes as some heartburn and vomiting. She reached out to the general surgery clinic and initially thought symptoms were normal postoperative findings however with now with dysuria presents here for further assessment. Current pain 8/10. Home Medications Medication Instructions Recorded Confirmed Type acetaminophen 500 mg tablet 500 mg PO Q6H PRN Pain 04/05/24 04/09/24 History calcium carbonate 500 mg PO DAILY 04/05/24 04/09/24 History cyproheptadine 4 mg tablet 4 mg PO DAILY 04/05/24 04/09/24 History escitalopram oxalate 10 mg tablet 10 mg PO DAILY 04/05/24 04/09/24 History ferrous sulfate 325 mg (65 mg 325 mg PO DAILY 04/05/24 04/09/24 History iron) tablet ibuprofen 200 mg tablet 200 mg PO Q6H PRN Pain 04/05/24 04/09/24 History norelgestromin 150 mcg-e.estradiol 1 patch topical WK 04/05/24 04/09/24 History 35 mcg/24 hr weekly transderm patch oxycodone-acetaminophen 5 mg-325 1 tab PO Q6H PRN pain #10 tabs 04/06/24 04/09/24 Rx mg tablet (Percocet) Allergies Allergy/AdvReac Type Severity Reaction Status Date / Time succinylcholine Allergy Severe Unresponsiv Verified 04/05/24 09:46 e cefdinir [From Omnicef] Allergy Rash Verified 04/05/24 09:46 Past Med/Surg History Problem List (Updated 04/09/24 @ 15:12 by OLIVIA Evans) Dysuria S/P laparoscopic cholecystectomy Abdominal pain Anxiety Acute cholecystitis (Acute) Pseudocholinesterase deficiency Surgical History No significant past surgical history Social History Smoking Status: Never smoker Hx Alcohol Use: No Hx Substance Use: No Preferred Language: Hungarian Communication Ability: Effective Rn Field Case Manager Required: No Beliefs That Will Affect Care: None Current Living Situation: Parent Other Information That Helps Us Care for You: No Feels Safe at Home: Yes Safety Concerns: Feels Safe At This Time Assistive Devices: None Review of Systems A total of 10 systems reviewed and were otherwise negative Physical Exam Vital Signs Vital Signs - 24 hr 04/09/24 09:00 04/09/24 09:21 04/09/24 09:43 Temperature 36.8 C Temperature Source Temporal Artery Scan Pulse Rate 83 74 74 Pulse Rate [Apical] Pulse Rhythm Regular Pulse Rhythm [Apical] Pulse Strength [Apical] Respiratory Rate 18 18 Respiratory Effort / Characteristics Non-Labored Spontaneous Respiratory Depth Normal Blood Pressure 133/82 Blood Pressure [Left Arm] Blood Pressure Mean 99 Blood Pressure Mean [Left Arm] Blood Pressure Position Sitting Blood Pressure Position [Left Arm] Pulse Oximetry 99 99 Oxygen Delivery Method Room Air Room Air Sepsis Recent Fever Within 48 Hours No Sepsis New/Unexplained Change in Mental Status No Sepsis Action Taken by Nursing No Action Required 04/09/24 09:50 04/09/24 11:00 04/09/24 13:00 Temperature 36.8 C 36.8 C 36.8 C Temperature Source Oral Oral Oral Pulse Rate Pulse Rate [Apical] 67 75 71 Pulse Rhythm Pulse Rhythm [Apical] Regular Regular Regular Pulse Strength [Apical] Normal Normal Normal Respiratory Rate 18 18 18 Respiratory Effort / Characteristics Non-Labored Spontaneous Non-Labored Spontaneous Non-Labored Spontaneous Respiratory Depth Normal Normal Normal Blood Pressure Blood Pressure [Left Arm] 131/80 145/70 H 124/70 Blood Pressure Mean Blood Pressure Mean [Left Arm] 97 95 88 Blood Pressure Position Blood Pressure Position [Left Arm] Lying Lying Lying Pulse Oximetry 99 99 99 Oxygen Delivery Method Room Air Room Air Room Air Sepsis Recent Fever Within 48 Hours Sepsis New/Unexplained Change in Mental Status Sepsis Action Taken by Nursing 04/09/24 14:09 Temperature Temperature Source Pulse Rate 70 Pulse Rate [Apical] Pulse Rhythm Pulse Rhythm [Apical] Pulse Strength [Apical] Respiratory Rate Respiratory Effort / Characteristics Respiratory Depth Blood Pressure Blood Pressure [Left Arm] Blood Pressure Mean Blood Pressure Mean [Left Arm] Blood Pressure Position Blood Pressure Position [Left Arm] Pulse Oximetry Oxygen Delivery Method Sepsis Recent Fever Within 48 Hours Sepsis New/Unexplained Change in Mental Status Sepsis Action Taken by Nursing VITAL SIGNS - Vital signs and nursing notes were reviewed. Stable and afebrile. GENERAL - 23-year-old female appearing her stated age who is in no acute distress. Communicates well with provider and answers questions appropriately. SKIN - Without rashes. No meningeal or petechial rash. HEAD - NC/AT. EYES - PERRL with EOMI bilaterally. Sclera anicteric. EARS - No deformities of external structures noted on gross examination bilaterally. External auditory canals without discharge or otorrhea. Tympanic membranes pearly damon without retraction or bulging. No fluid or purulent material visualized behind the TM. Handle of malleus, umbo, cone of light, pars tensa/flaccid all easily visualized. NOSE - Midline and without cyanosis. No epistaxis or purulent drainage noted. Septum midline without deviation or septal hematoma noted. MOUTH/OROPHARYNX - Without perioral cyanosis. Buccal mucosa pink and moist and without leukoplakia. Tongue midline with equal elevation of palate bilaterally. No tonsillar hypertrophy, erythema, or exudates noted. Good dentition noted. NECK - Neck with FROM. No nuchal rigidity. LUNGS - Chest wall symmetric without accessory muscle use, intercostals retractions, or central cyanosis. Normal vesicular breath sounds CTA B/L. No wheezes, rales, or rhonchi appreciated. CARDIAC - RRR ABDOMEN - Abdominal contour normal without pulsations or visible masses. BS normoactive all four quadrants. There is right sided abdominal tenderness to palpation. No guarding or rigidity. No palpable masses, hepatosplenomegaly, or ascites noted. EXTREMITIES - No clubbing or peripheral cyanosis. +5/5 strength noted in UE/LE bilaterally. NEUROLOGIC - Cranial nerves II through XII grossly intact. PSYCH -alert, oriented and pleasant on exam. Course Administered Medications Discontinued Medications Sodium Chloride (Nss) 1,000 mls @ 500 mls/hr IV .Q2H ONE Stop: 04/09/24 12:43 Last Infusion: 04/09/24 15:13 Dose: Infused Documented By: Admin: 04/09/24 10:56 Dose: 500 mls/hr Documented By: EMIR Ioversol (Optiray 320 100ml) 93 ml IV ONCE ONE Stop: 04/09/24 13:42 Last Admin: 04/09/24 13:42 Dose: 93 ml Documented By: RALPH Morphine Sulfate (Morphine Sulfate 4 Mg/Ml 1 Ml Carp\\Vial) 4 mg IV NOW STA Stop: 04/09/24 09:30 Last Admin: 04/09/24 10:48 Dose: 4 mg Documented By: EMIR Morphine Sulfate (Morphine Sulfate 2 Mg/Ml Carp) 2 mg IV NOW STA Stop: 04/09/24 11:28 Last Admin: 04/09/24 11:35 Dose: 2 mg Documented By: EMIR Ondansetron HCl (Ondansetron Inj 2 Mg/Ml 2 Ml Vial) 4 mg IV NOW STA Stop: 04/09/24 09:30 Last Admin: 04/09/24 10:48 Dose: 4 mg Documented By: EMIR Phenazopyridine HCl (Phenazopyridine Hcl 200 Mg Tab) 200 mg PO NOW STA Stop: 04/09/24 15:20 Last Admin: 04/09/24 15:31 Dose: 200 mg Documented By: TOM Medical Decision Making Laboratory Data 04/09/24 09:58 04/09/24 09:58 Lab Results 04/09/24 04/09/24 04/09/24 Range/Units 09:40 09:58 10:03 WBC 11.39 H (4.8-10.8) K/ul RBC 4.27 (4.20-5.40) M/uL Hgb 12.5 (12.0-16.0) g/dl Hct 37.7 (37.0-47.0) % MCV 88.3 (80.0-100.0) fL MCH 29.3 (25.0-34.0) pg MCHC 33.2 (32.0-36.0) g/dL RDW Std Deviation 43.7 (36.4-46.3) fL RDW Coeff of [place] 13.4 (11.5-14.5) % Plt Count 404 H (130-400) K/uL MPV 9.6 (9.4-12.4) fL Immature Gran % (Auto) 1.9 % Neut % (Auto) 77.8 % Lymph % (Auto) 15.5 % [place] % (Auto) 4.0 % Eos % (Auto) 0.4 % Baso % (Auto) 0.4 % Neut # (Auto) 8.85 H (1.40-6.50) K/uL Lymph # (Auto) 1.76 (1.20-3.40) K/uL [place] # (Auto) 0.46 (0.11-0.59) K/uL Eos # (Auto) 0.05 (0.00-0.50) K/uL Baso # (Auto) 0.05 (0.00-0.20) K/uL Immature Gran # (Auto) 0.22 H (0.01-0.20) K/uL Sodium 136 (136-145) mmol/L Potassium 4.0 (3.5-5.1) mmol/L Chloride 102 (98-107) mmol/L Carbon Dioxide 24 (21-32) mmol/L Anion Gap 10 (3-11) BUN 10 (6-23) mg/dl Creatinine 0.68 (0.6-1.2) mg/dl Est Cr Clr Drug Dosing 141.5 ml/min eGFR 126.99 BUN/Creatinine Ratio 14.7 (10-20) Glucose 83 (70-99(Fasting)) mg/dl Lactate 1.4 (0.4-2.0) mmol/L Calcium 10.3 (8.6-10.3) mg/dl Total Bilirubin 0.4 (0.2-1.0) mg/dl AST 21 (13-39) U/L ALT 26 (7-52) U/L Alkaline Phosphatase 64 (34-104) U/L Troponin I High Sens 2.4 (0-14) pg/ml Total Protein 7.9 (6.0-8.3) gm/dl Albumin 4.6 (3.4-5.0) gm/dl Globulin 3.3 (2.5-4.0) gm/dl Albumin/Globulin Ratio 1.4 (0.9-2) Lipase 42 (11-82) U/L Procalcitonin < 0.02 (0-0.5) ng/ml HCG, Qual Negative (Negative) Urine Color Dark Yellow Urine Appearance Clear (Clear) Urine pH 5.5 (4.5-7.5) Ur Specific [place] 1.039 H (1.000-1.030) Urine Protein Trace H (Negative) Urine Glucose (UA) Negative (Negative) Urine Ketones Trace H (Negative) Urine Blood Negative (Negative) Urine Nitrite Negative (Negative) Urine Bilirubin 1+ H (Negative) Urine Urobilinogen Negative (Negative) Ur Leukocyte Esterase Negative (Negative) Urine WBC (Auto) 0-5 (0-5) /hpf Urine RBC (Auto) 3-5 H (0-2) /hpf U Hyaline Cast (Auto) 0-2 (0-2) /lpf U Epithel Cells (Auto) 3-5 H (0-2) /hpf Urine Bacteria (Auto) 2+ H (None Seen) Urine Mucus Present A (None Prsent) Imaging Data Radiologist's Impression: Chest X-Ray 04/09/24 09:21 XR chest 1V portable CLINICAL HISTORY: post operative abd and chest pain COMPARISON STUDY: Chest CT April 05, 2024. FINDINGS: Lung volumes are normal. Lungs are clear. There is no pneumothorax or pleural effusion. Cardiac size is normal. Mediastinal contours are normal. There is no evidence for pulmonary edema. IMPRESSION: No acute cardiopulmonary findings. ACT 112: Negative or not required by law. Electronically signed by: Eleno Arce M.D. 04/09/2024 10:04 AM Abdomen/Pelvis CT 04/09/24 10:[address] WITH IV CONTRAST CT DOSE: 844.01 mGy.cm HISTORY: R sided abd pain, s/p cholecystectomy TECHNIQUE: Multiaxial CT images of the abdomen and pelvis were performed following the IV administration of 93 cc of Optiray, A dose lowering technique was utilized adhering to the principles of ALARA. Sagittal and coronal reconstructions were done. COMPARISON STUDY: 04/05/2024 FINDINGS: Cholecystectomy clips are now present. There is a small amount of fluid in Morison's pouch region and possibility of a bile leak. This could be evaluated with a nuclear medicine HIDA scan if clinically warranted. The liver is unremarkable. There is no bile duct distention. No pancreatic, adrenal, renal, or splenic lesion identified. There is no bowel obstruction or free air. There is no generalized ascites. Scattered air-fluid levels are present which could represent a mild ileus. In the pelvis, the urinary bladder is distended. The uterus is midline. There is a moderate amount of fluid within the cul-de-sac. The appendix is normal. There are no adnexal masses. IMPRESSION: Small fluid accumulations in Morison's pouch and in the cul-de-sac of the pelvis in a patient 4 days status post cholecystectomy. If a bile leak is of clinical concern, consider a nuclear medicine HIDA scan for further evaluation. The urinary bladder is moderately distended. ACT 112: Negative or not required by law. The above report was generated using voice recognition software. It may contain grammatical, syntax or spelling errors. Electronically signed by: Caitlin Blair M.D. 04/09/2024 2:14 PM MDM Narrative Patient was seen and evaluated as above in room C08. Review was performed of triage nursing notes and vital signs. I did review pertinent previous visits and patient history. After obtaining a thorough history and physical examination the above work up was performed. Patient presents to us today status post cholecystectomy from 04/05/24. Mild generalized right-sided abdominal tenderness. No guarding rigidity. IV access with established. Labs were drawn. There is no concerning anemia. Improving leukocytosis 11.39. No anemia. Mild thrombocytosis at 404. No emergent metabolic disturbance. No evidence of kidney or liver failure. Troponin negative. Lipase normal. Procalcitonin normal. hCG negative. Lactate wnl. Urinalysis reveals trace protein, trace ketones, 1+ bilirubin, 310 red blood cells, 3-5 epis, 2+ bacteria, urine mucus. Urine culture is pending. Will temporarily hold off on antibiotics pending further workup. EKG plus chest x-ray was performed. Per my interpretation chest x-ray negative for acute process. EKG as per my interpretation normal sinus rhythm at a rate of 68 bpm. QTc 404. QRS 82. No ST elevation. CT scan was obtained of the abdomen/pelvis. Results as above. There is comment of small fluid accumulations in Morison's pouch and in the cul-de-sac of the pelvis and the patient 4 days status post cholecystectomy. They do note that if a bile leak is of clinical concern, consider a HIDA scan for further evaluation. I discussed this with general surgery, specifically spoke to Cosetta O'Codey, RADIOLOGY CT TECHNOLOGIST at 2:24 PM. She came to evaluate the patient. She notes that plan will be admission for further assessment. Please refer to further documentation regarding her stay. During her time here patient was managed with IV analgesia, IV antiemetics. GCS: 15 In the evaluation and treatment of this patient the following differential diagnoses were entertained: Postoperative pain, PR, pneumonia, UTI, pyelonephritis, bile leak, among others. Impression & Plan S/P laparoscopic cholecystectomy, Abdominal pain Discharge Plan Visit Data Chief Complaint: Illness Stated Complaint: RECENT SURG, NAUSEA/VOMITING, BURNING PEE,RT ABD P ED Provider: Milton Goins ED Midlevel Provider: Gavin Casey Discharge Problem: S/P laparoscopic cholecystectomy, Abdominal pain Patient Disposition: Admitted As Inpatient Condition: Good
--- NOTE | 2024-04-09 10:06 | XRay Report ---
XR chest 1V portable CLINICAL HISTORY: post operative abd and chest pain COMPARISON STUDY: Chest CT April 05, 2024. FINDINGS: Lung volumes are normal. Lungs are clear. There is no pneumothorax or pleural effusion. Car diac size is normal. Mediastinal contours are normal. There is no evidence for pulmonary edema. IMPRESSION: No acute cardiopulmonary findings. ACT 112: Negative or not required by law. Electronically signed by: Eleno Arce M.D. 04/09/2024 10:04 AM
[2024-04-09 10:20] LABS: Basophils # (auto) 0.05 K/uL (0.00-0.20); Basophils % (auto) 0.4 %; Eosinophils # (auto) 0.05 K/uL (0.00-0.50); Eosinophils % (auto) 0.4 %; Hematocrit (blood only) 37.7 % (37.0-47.0); Hemoglobin 12.5 g/dl (12.0-16.0); Immature Granulocytes # (auto) 0.22 K/uL (0.01-0.20); Immature Granulocytes % (auto) 1.9 %; Lymphocytes # (auto) 1.76 K/uL (1.20-3.40); Lymphocytes % (auto) 15.5 %; Mean Corpuscular Hemoglobin 29.3 pg (25.0-34.0); Mean Corpuscular Hgb Conc 33.2 g/dL (32.0-36.0); Mean Corpuscular Volume 88.3 fL (80.0-100.0); Mean Platelet Volume 9.6 fL (9.4-12.4); Monocytes # (auto) 0.46 K/uL (0.11-0.59); Neutrophils # (auto) 8.85 K/uL (1.40-6.50); Neutrophils % (auto) 77.8 %; Platelet Count 404 K/uL (130-400); RDW Coefficient of Variation 13.4 % (11.5-14.5); RDW Standard Deviation 43.7 fL (36.4-46.3); Red Blood Count 4.27 M/uL (4.20-5.40); White Blood Count 11.39 K/ul (4.8-10.8)
[2024-04-09 10:32] LABS: Appearance Urine Clear (Clear); Bacteria Urine Automated 2+ (None Seen); Bilirubin Urine 1+ (Negative); Blood Urine Negative (Negative); Cast Urine Automated 0-2 /lpf (0-2); Color Urine Dark Yellow; Glucose Urine UA Negative (Negative); Ketones Urine Trace (Negative); Leukocyte Esterase Urine Negative (Negative); Mucus Urine Present (None Prsent); Nitrite Urine Negative (Negative); Protein Urine Trace (Negative); Specific Gravity Urine 1.039 (1.000-1.030); Urobilinogen Urine Negative (Negative); WBC Urine Automated 0-5 /hpf (0-5); pH Urine 5.5 (4.5-7.5)
[2024-04-09 10:33] LABS: Pregnancy Test, Serum Negative (Negative)
[2024-04-09 10:40] LABS: Albumin Globulin Ratio 1.4 (0.9-2); Albumin Level 4.6 gm/dl (3.4-5.0); BUN Creatinine Ratio 14.7 (10-20); Bilirubin,Total 0.4 mg/dl (0.2-1.0); Calcium 10.3 mg/dl (8.6-10.3); Creatinine Clr Calc Pharmacy 141.5 ml/min; Globulin 3.3 gm/dl (2.5-4.0); Total Protein 7.9 gm/dl (6.0-8.3)
[2024-04-09 10:46] LABS: Troponin I High Sensitivity 2.4 pg/ml (0-14)
[2024-04-09] MEDS: MoRPHine SULFATE 4 MG/ML 1 ML CARP\\VIAL IV STA (10:48)
[2024-04-09] MEDS: ONDANSETRON INJ 2 MG/ML 2 ML VIAL IV STA (10:48)
[2024-04-09] MEDS: SODIUM CHLORIDE 0.9% 1,000 ML IV ONE (10:56)
[2024-04-09] MEDS: MoRPHine SULFATE 2 MG/ML CARP IV STA (11:35)
--- NOTE | 2024-04-09 12:53 | Electrocardiogram Report ---
Test Reason : Blood Pressure : */* mmHG Vent. Rate : 68 BPM Atrial Rate : 68 BPM P-R Int : 122 ms QRS Dur : 82 ms QT Int : 380 ms P-R-T Axes : 49 53 42 degrees QTcB Int : 404 ms Normal sinus rhythm Normal ECG When compared with ECG of 05-Apr-2024 03:57, QT has shortened Confirmed by Donnell Bartlett ([id number]) on 04/09/2024 12:53:12 PM Referred By: REFERRED SELF Confirmed By: Donnell Bartlett
[2024-04-09] MEDS: OPTIRAY 320 100ml IV ONE (13:42)
--- NOTE | 2024-04-09 14:15 | CT Scan Report ---
ABDOMEN AND PELVIS CT WITH IV CONTRAST CT DOSE: 844.01 mGy.cm HISTORY: R sided abd pain, s/p cholecystectomy TECHNIQUE: Multiaxial CT images of the abdomen and pelvis were performed following the IV administrat ion of 93 cc of Optiray, A dose lowering technique was utilized adhering to the principles of ALARA. Sagittal and coronal reconstructions were done. COMPARISON STUDY: 04/05/2024 FINDINGS: Cholecystectomy clips are now present. There is a small amount of fluid in Morison's pouch region and possibility of a bile leak. This could be evaluated with a nuclear medicine HIDA scan if c linically warranted. The liver is unremarkable. There is no bile duct distention. No pancreatic, adrenal, renal, or spleni c lesion identified. There is no bowel obstruction or free air. There is no generalized ascites. Scattered air-fluid level s are present which could represent a mild ileus. In the pelvis, the urinary bladder is distended. The uterus is midline. There is a moderate amount of fluid within the cul-de-sac. The appendix is normal. There are no adnexal masses. IMPRESSION: Small fluid accumulations in Morison's pouch and in the cul-de-sac of the pelvis in a pat ient 4 days status post cholecystectomy. If a bile leak is of clinical concern, consider a nuclear ak dicine HIDA scan for further evaluation. The urinary bladder is moderately distended. ACT 112: Negative or not required by law. The above report was generated using voice recognition software. It may contain grammatical, syntax o r spelling errors. Electronically signed by: Caitlin Blair M.D. 04/09/2024 2:14 PM
--- NOTE | 2024-04-09 15:20 | History & Physical Report ---
Date of Service April 09, 2024 Assessment & Plan (1) Abdominal pain: Plan: Patient is s/p laparoscopic cholecystectomy 04/05/[address] Kwan that presented to the [facility] ER 04/09/24 with c/o, n/v, abd pain, fever/chills. CT scan in showing concerns for a small amount of fluid in Morison's pouch region and possibility of a bile leak. On exam patient is in NAD, abd is non distended, TTP RLQ, RUQ. incisions with dermbond CDI no s.s infection. VSS , afebrile. WBC 11, LFT wnl. Will admit patient HIDA scan to r/o bile leak. IV fluids for hydration, npo until results of HIDA. Ordered outpatient Lexapro for anxiety Pyridium for dysuria urinalysis noted, will await UA culture IV antiemetic PRN IV analgesic PRN Further recommendations will be forthcoming based on imaging results. (2) Anxiety: (3) Dysuria: (4) S/P laparoscopic cholecystectomy: History of Present Illness Chief Complaint: s/p laparoscopic cholecystectomy 04/05/24 with c/o, n/v, abd pain, fever/chills Primary Care Provider: Lynn Zafar PA-C Patient is a pleasant 23 yo female with PHM of anxiety, GERD, anemia, migraines and is s/p laparoscopic cholecystectomy 04/05/[address] Kwan that presented to the [facility] ER 04/09/24 with c/o, n/v, abd pain, fever/chills. Patient reports that she went home Monday and started having intermittent abdominal pain that has progressively gotten worse over the last few days with associated nausea, vomiting, fevers and chills. Pain is right sided. She has been taking OTC Tylenol and Ibuprofen with some relief. The pain is more severe at night. She has been having bowel movements and passing flatus. Reports dysuria which started this AM. CT scan in showing concerns for a small amount of fluid in Morison's pouch region and possibility of a bile leak. Allergies Allergy/AdvReac Type Severity Reaction Status Date / Time succinylcholine Allergy Severe Unresponsiv Verified 04/05/24 09:46 e cefdinir [From Omnicef] Allergy Rash Verified 04/05/24 09:46 Home Medications Medication Instructions Recorded Confirmed Type acetaminophen 500 mg tablet 500 mg PO Q6H PRN Pain 04/05/24 04/09/24 History calcium carbonate 500 mg PO DAILY 04/05/24 04/09/24 History cyproheptadine 4 mg tablet 4 mg PO DAILY 04/05/24 04/09/24 History escitalopram oxalate 10 mg tablet 10 mg PO DAILY 04/05/24 04/09/24 History ferrous sulfate 325 mg (65 mg 325 mg PO DAILY 04/05/24 04/09/24 History iron) tablet ibuprofen 200 mg tablet 200 mg PO Q6H PRN Pain 04/05/24 04/09/24 History norelgestromin 150 mcg-e.estradiol 1 patch topical WK 04/05/24 04/09/24 History 35 mcg/24 hr weekly transderm patch oxycodone-acetaminophen 5 mg-325 1 tab PO Q6H PRN pain #10 tabs 04/06/24 04/09/24 Rx mg tablet (Percocet) Past Med/Surg History Problem List (Updated 04/09/24 @ 15:12 by OLIVIA Evans) Dysuria S/P laparoscopic cholecystectomy Abdominal pain Anxiety Acute cholecystitis (Acute) Pseudocholinesterase deficiency Surgical History No significant past surgical history Social History Smoking Status: Never smoker Hx Alcohol Use: No Hx Substance Use: No Preferred Language: Guamanian Communication Ability: Effective Utility Inspector Required: No Beliefs That Will Affect Care: None Current Living Situation: Parent Other Information That Helps Us Care for You: No Feels Safe at Home: Yes Safety Concerns: Feels Safe At This Time Assistive Devices: None Review of Systems Constitutional: no fever and no chills Respiratory: no dyspnea Cardiovascular: no chest pain Gastrointestinal: + abdominal pain, + nausea and + vomitin g Genitourinary: + dysuria Musculoskeletal: no muscle weakness Integumentary: no rash Psychiatric: no confusion Physical Exam Constitutional: well developed, cooperative and comfortable; no acute distress Respiratory: normal respiratory effort and able to speak in complete sentences; no respiratory distress Cardiovascular: Rate/Rhythm: regular rate Gastrointestinal (Abdomen): Inspection/Auscultation: + abdominal surgical incision (dermabond CDI ); abdomen not distended Percussion/Palpation: + abdomen tender (RLQ/RUQ) and abdomen soft Musculoskeletal: no cyanosis or clubbing, extremities motor strength 5/5 Skin: no rashes, warm and dry Psychiatric: Orientation: alert and oriented x 3 Results & Data Results & Data Vital Signs (Past 12 Hours) Vital Signs Temp Pulse Pulse Resp BP BP Pulse Ox 04/09/24 14:09 70 04/09/24 13:00 98.2 F 71 18 124/70 99 04/09/24 11:00 98.2 F 75 18 145/70 H 99 04/09/24 09:50 98.2 F 67 18 131/80 99 04/09/24 09:43 74 04/09/24 09:21 74 18 99 04/09/24 09:00 98.2 F 83 18 133/82 99 O2 Del Method 04/09/24 14:09 04/09/24 13:00 Room Air 04/09/24 11:00 Room Air 04/09/24 09:50 Room Air 04/09/24 09:43 04/09/24 09:21 Room Air 04/09/24 09:00 Room Air Diagnostic Findings [place], [place] [phone] CT Scan Report Patient: TRANG ANNA Admit Date: 04/09/24 MR#: [id number] Address1: [address] [place] [address] Acct ID:[id number] Address2: Date: [facility] Zip: [place] [address] Age: 23 Location: ED Sex: F Room/Bed: Att Phy: Diagnosis: RECENT SURG, NAUSEA/VOMITING, BURNING PEE,RT ABD P Alix Phy: Lynn Zafar PA-C Service Date: 04/09/24 Fam Phy: Interpreting Phy: Caitlin Blair MDAdmit Phy: Ordering Phy: Gavin Casey PA-C cc: ~ ABDOMEN AND PELVIS CT WITH IV CONTRAST CT DOSE: 844.01 mGy.cm HISTORY: R sided abd pain, s/p cholecystectomy TECHNIQUE: Multiaxial CT images of the abdomen and pelvis were performed following the IV administration of 93 cc of Optiray, A dose lowering technique was utilized adhering to the principles of ALARA. Sagittal and coronal reconstructions were done. COMPARISON STUDY: 04/05/2024 FINDINGS: Cholecystectomy clips are now present. There is a small amount of fluid in Morison's pouch region and possibility of a bile leak. This could be evaluated with a nuclear medicine HIDA scan if clinically warranted. The liver is unremarkable. There is no bile duct distention. No pancreatic, adrenal, renal, or splenic lesion identified. There is no bowel obstruction or free air. There is no generalized ascites. Scattered air-fluid levels are present which could represent a mild ileus. In the pelvis, the urinary bladder is distended. The uterus is midline. There is a moderate amount of fluid within the cul-de-sac. The appendix is normal. There are no adnexal masses. IMPRESSION: Small fluid accumulations in Morison's pouch and in the cul-de-sac of the pelvis in a patient 4 days status post cholecystectomy. If a bile leak is of clinical concern, consider a nuclear medicine HIDA scan for further evaluation. The urinary bladder is moderately distended. ACT 112: Negative or not required by law. The above report was generated using voice recognition software. It may contain grammatical, syntax or spelling errors. Electronically signed by: Caitlin Blair M.D. 04/09/2024 2:14 PM Dictated: 04/09/24 1404 Transcribed: 04/09/24 1404 Chemistry Results CMP Results: Sodium 136 mmol/L (136-145) 04/09/24 Potassium 4.0 mmol/L (3.5-5.1) 04/09/24 Chloride 102 mmol/L (98-107) 04/09/24 Carbon Dioxide 24 mmol/L (21-32) 04/09/24 Anion Gap 10 (3-11) 04/09/24 BUN 10 mg/dl (6-23) 04/09/24 Creatinine 0.68 mg/dl (0.6-1.2) 04/09/24 eGFR 126.99 04/09/24 BUN/Creatinine Ratio 14.7 (10-20) 04/09/24 Glucose 83 mg/dl (70-99(Fasting)) 04/09/24 Calcium 10.3 mg/dl (8.6-10.3) 04/09/24 Total Bilirubin 0.4 mg/dl (0.2-1.0) 04/09/24 AST 21 U/L (13-39) 04/09/24 ALT 26 U/L (7-52) 04/09/24 Alkaline Phosphatase 64 U/L (34-104) 04/09/24 Total Protein 7.9 gm/dl (6.0-8.3) 04/09/24 Albumin 4.6 gm/dl (3.4-5.0) 04/09/24 Globulin 3.3 gm/dl (2.5-4.0) 04/09/24 Albumin/Globulin Ratio 1.4 (0.9-2) 04/09/24 CBC w Diff Results Results CBC w Diff Results: RBC 4.27 M/uL (4.20-5.40) 04/09/24 WBC 11.39 K/ul (4.8-10.8) H 04/09/24 Hgb 12.5 g/dl (12.0-16.0) 04/09/24 Hct 37.7 % (37.0-47.0) 04/09/24 MCV 88.3 fL (80.0-100.0) 04/09/24 MCH 29.3 pg (25.0-34.0) 04/09/24 MCHC 33.2 g/dL (32.0-36.0) 04/09/24 RDW Standard Deviation 43.7 fL (36.4-46.3) 04/09/24 RDW Coefficient of Variation 13.4 % (11.5-14.5) 04/09/24 Plt Count 404 K/uL (130-400) H 04/09/24 MPV 9.6 fL (9.4-12.4) 04/09/24 Neutrophils (%) (Auto) 77.8 % 04/09/24 Lymphocytes (%) (Auto) 15.5 % 04/09/24 Monocytes # (Auto) 0.46 K/uL (0.11-0.59) 04/09/24 Eosinophils # (Auto) 0.05 K/uL (0.00-0.50) 04/09/24 Immature Granulocyte % (Auto) 1.9 % 04/09/24 Neutrophils # (Auto) 8.85 K/uL (1.40-6.50) H 04/09/24 Lymphocytes # (Auto) 1.76 K/uL (1.20-3.40) 04/09/24 Monocytes # (Auto) 0.46 K/uL (0.11-0.59) 04/09/24 Eosinophils # (Auto) 0.05 K/uL (0.00-0.50) 04/09/24 Basophils # (Auto) 0.05 K/uL (0.00-0.20) 04/09/24 Immature Granulocyte # (Auto) 0.22 K/uL (0.01-0.20) H 04/09 Urine Analysis / Culture Results Urinalysis: Urine Color Dark Yellow 04/09/24 Urine Appearance Clear (Clear) 04/09/24 Urine pH 5.5 (4.5-7.5) 04/09/24 Ur Specific [place] 1.039 (1.000-1.030) H 04/09/24 Urine Protein Trace (Negative) H 04/09/24 Urine Glucose (UA) Negative (Negative) 04/09/24 Urine Ketones Trace (Negative) H 04/09/24 Urine Blood Negative (Negative) 04/09/24 Urine Nitrite Negative (Negative) 04/09/24 Urine Bilirubin 1+ (Negative) H 04/09/24 Urine Urobilinogen Negative (Negative) 04/09/24 Ur Leukocyte Esterase Negative (Negative) 04/09/24 Urine WBC (Auto) 0-5 /hpf (0-5) 04/09/24 Urine RBC (Auto) 3-5 /hpf (0-2) H 04/09/24 Urine Hyaline Casts (Auto) 0-2 /lpf (0-2) 04/09/24 Urine Epithelial Cells (Auto) 3-5 /hpf (0-2) H 04/09/24 Urine Bacteria (Auto) 2+ (None Seen) H 04/09/24 Urine Culture: Micro Urine Specimen 04/09/24 Code Status & VTE Plan VTE Prophylaxis Plan VTE Prophylaxis will be ordered: Yes Supervising Physician Co-Signing Physician Notes Patient seen and examined, labs and imaging reviewed, agree with above. Status post laparoscopic cholecystectomy for cholelithiasis by Dr. Kwan on 05 Apr 2024, presented with burning right upper quadrant pain, worse at night. Also describes epigastric pain as well as some dysuria. She initially felt fine after surgery until Monday night. No exacerbating factors. On exam she is afebrile with stable vitals, abdomen is soft, tender to palpation in the right upper quadrant, incisions without infection. WBC mildly elevated 11, LFTs normal. CT scan personally viewed and interpreted and agree with the assessment of small amount of fluid in the gallbladder fossa, no free air, no obvious abnormality. At this point we will obtain a HIDA scan to rule out a bile leak, have very low suspicion for choledocholithiasis given her labs. If the HIDA scan cannot be performed until tomorrow, then we will let her have clear liquids. If the HIDA scan is positive then she will need transfer for an ERCP. If it is negative, then we will continue to monitor and treat her symptoms and advance her diet as tolerated. No indication for antibiotics at this time. Dr. Kwan has been informed of the plan. PG Care Time/CCT Total # of Minutes Spent Total Time Spent with Patient: Total time spent is greater than 50% in coordination of care (as documented) at patient's floor/unit and/or counseling patient: Coding Level of Care Code 33334 INT INP/OBS CARE 1/40MIN Diagnoses Abdominal pain R10.9 Anxiety F41.9 Dysuria R30.0 S/P laparoscopic cholecystectomy Z90.49
[2024-04-09] MEDS: PHENAZOPYRIDINE HCL 200 MG TAB PO STA (15:31)
[2024-04-09] MEDS ORDERED: MoRPHine SULFATE 2 MG/ML CARP IV PRN (17:19)
[2024-04-09] MEDS ORDERED: ONDANSETRON INJ 2 MG/ML 2 ML VIAL IV PRN (17:19)
--- NOTE | 2024-04-09 17:36 | Nuclear Medicine Report ---
EXAM: NM Hepatobiliary Scan INDICATION: Evaluate for leak. TECHNIQUE: Frontal dynamic images of the abdomen and pelvis were obtained over 60 minutes following the intravenous administration of 5.5 mCi Tc99m DANNY. COMPARISON: No relevant prior studies available. FINDINGS: Liver: No abnormality noted. Homogeneous radiotracer uptake. Bile ducts: No abnormality noted. Clearly visualized. Gallbladder: Cholecystectomy. Stomach and bowel: No abnormality noted. Radiotracer activity is seen in the small bowel. Intraperitoneal space: No abnormality noted. No bile leak. IMPRESSION: Cholecystectomy. No abnormal activity to suggest bile leak. ACT 112: Negative or not required by law. Electronically signed by Reina Brown 04-09-2024 5:35 PM
[2024-04-09] MEDS: SODIUM CHLORIDE 0.9% 1,000 ML IV SCH (17:57)
[2024-04-09] MEDS: ACETAMINOPHEN 325 MG TAB PO PRN (18:40)
[2024-04-09] MEDS: IBUPROFEN 200 MG TAB PO PRN (20:55)
[2024-04-10 07:10] LABS: Basophils # (auto) 0.03 K/uL (0.00-0.20); Basophils % (auto) 0.3 %; Eosinophils # (auto) 0.13 K/uL (0.00-0.50); Eosinophils % (auto) 1.4 %; Hemoglobin 10.5 g/dl (12.0-16.0); Immature Granulocytes # (auto) 0.03 K/uL (0.01-0.20); Immature Granulocytes % (auto) 0.3 %; Lymphocytes # (auto) 2.49 K/uL (1.20-3.40); Lymphocytes % (auto) 26.1 %; Mean Corpuscular Hemoglobin 29.5 pg (25.0-34.0); Mean Corpuscular Hgb Conc 32.8 g/dL (32.0-36.0); Mean Corpuscular Volume 89.9 fL (80.0-100.0); Mean Platelet Volume 10.3 fL (9.4-12.4); Monocytes % (auto) 7.3 %; Neutrophils # (auto) 6.17 K/uL (1.40-6.50); Neutrophils % (auto) 64.6 %; Platelet Count 297 K/uL (130-400); RDW Coefficient of Variation 13.3 % (11.5-14.5); RDW Standard Deviation 44.4 fL (36.4-46.3); Red Blood Count 3.56 M/uL (4.20-5.40); White Blood Count 9.55 K/ul (4.8-10.8)
[2024-04-10] MEDS: oxyCODONE HCL IR 5 MG TAB (IMMEDIATE RELEASE) PO PRN ×2 (07:30→15:53)
[2024-04-10 07:36] LABS: Albumin Level 3.6 gm/dl (3.4-5.0); Bilirubin,Total 0.5 mg/dl (0.2-1.0); Calcium 8.6 mg/dl (8.6-10.3); Potassium 4.1 mmol/L (3.5-5.1)
[2024-04-10 07:44] LABS: Albumin Globulin Ratio 1.3 (0.9-2); BUN Creatinine Ratio 13.8 (10-20); Creatinine Clr Calc Pharmacy 148.1 ml/min; Globulin 2.7 gm/dl (2.5-4.0); Total Protein 6.3 gm/dl (6.0-8.3)
--- NOTE | 2024-04-10 07:56 | Surgery Progress Note ---
Date of Service April 10, 2024 Assessment & Plan (1) S/P laparoscopic cholecystectomy: Plan: pt s/p lap jaja on 04/[address] kwan here with abdominal pain hida scan performed yesterday negative for bile leak wbc 9.5, LFTs are within normal limits. vitals are stable pt had a good night, however having some increased pain in RUQ/R flank regions this AM. just took pain medication while in room Will allow patient to trial fulls this AM We will check up on patient later today for check in and possible further diet advancement awaiting urine culture, started on Pyridium for urinary burning Admission and Anticipated Discharge Date Admission Date: April 09, 2024 Supervising Physician Co-Signing Physician Notes Patient seen and examined, labs and imaging reviewed, agree with above. Status post laparoscopic cholecystectomy for cholelithiasis by Dr. Kwan on 05 Apr 2024, presented with burning right upper quadrant pain, worse at night. HIDA scan overnight negative for leak. She did have some pain after being woken for vital signs overnight, but it was less than it was at home. It appears that she never had her Percocet prescription filled and she may have just gotten behind on pain control. On exam she is afebrile stable vitals. Abdomen is soft, minimally tender to palpation, incisions without infection. Labs unremarkable. HIDA scan personally viewed interpret agree with the assessment if no obvious evidence of a bile leak. At this point we will advance her diet. We will attempt to get a good pain control regimen. Hopeful for discharge this afternoon with follow-up with Dr. Kwan as an outpatient. Subjective Patient says overnight went well but her pain is returning although at lesser level than before this AM. Currently pain 6/10 in severity compared to 10/10. No nausea/vomiting this AM. She is having + bowel function. Tolerating clears without worsening symptoms. Some burning with urination Physical Exam Physical Exam: awake/alert, no distress Gastrointestinal (Abdomen): Inspection/Auscultation: + abdominal surgical incision (c/d/i with skin glue, no signs of infection); abdomen not distended Percussion/Palpation: + abdomen tender (ttp in RUQ and R flank regions) and abdomen soft Results & Data Vital Signs (Past 12 Hours) Vital Signs Temp Pulse Pulse Resp BP BP Pulse Ox 04/10/24 07:10 98.8 F 76 18 103/63 97 04/09/24 20:04 98.1 F 71 16 126/80 97 O2 Del Method 04/10/24 07:10 Room Air 04/09/24 20:04 Room Air PG Care Time/CCT Total # of Minutes Spent Total Time Spent with Patient: Total time spent is greater than 50% in coordination of care (as documented) at patient's floor/unit and/or counseling patient: Coding Level of Care Code 95136 SUB INP/OBS CARE 04/06MIN Diagnoses S/P laparoscopic cholecystectomy Z90.49
[2024-04-10] MEDS: CYPROHEPTADINE HCL 4 MG TAB PO SCH (08:54)
[2024-04-10] MEDS: ESCITALOPRAM OXALATE 10 MG TAB PO SCH (08:54)
[2024-04-10] MEDS: PHENAZOPYRIDINE HCL 200 MG TAB PO PRN (10:01)
[2024-04-10] MEDS: ACETAMINOPHEN 1,000 MG/100 ML VIAL IV PRN (11:50)
[2024-04-10 15:12] VITALS: BP 107/71; PULSE 75; RESP 16; TEMP 98.2; O2SAT 96
--- NOTE | 2024-04-11 14:57 | Discharge Summary ---
Date of Service April 10, 2024 Admission HPI Per Admitting Provider Patient is a pleasant 23 yo female with PHM of anxiety, GERD, anemia, migraines and is s/p laparoscopic cholecystectomy 04/05/[address] Kwan that presented to the [facility] ER 04/09/24 with c/o, n/v, abd pain, fever/chills. Patient reports that she went home Monday and started having intermittent abdominal pain that has progressively gotten worse over the last few days with associated nausea, vomiting, fevers and chills. Pain is right sided. She has been taking OTC Tylenol and Ibuprofen with some relief. The pain is more severe at night. She has been having bowel movements and passing flatus. Reports dysuria which started this AM. CT scan in showing concerns for a small amount of fluid in Morison's pouch region and possibility of a bile leak. Principal Diagnosis post op abdominal pain s/p laparoscopic cholecystectomy Discharge Exam awake/alert, no distress Gastrointestinal (Abdomen) Inspection/Auscultation: + abdominal surgical incision (c/d/i with skin glue, no signs of infection); abdomen not distended Percussion/Palpation: + abdomen tender (ttp in RUQ and R flank regions) and abdomen soft Discharge Data Allergies Allergy/AdvReac Type Severity Reaction Status Date / Time succinylcholine Allergy Severe Unresponsiv Verified 04/05/24 09:46 e cefdinir [From Omnicef] Allergy Rash Verified 04/05/24 09:46 Consultations 04/09/24 14:38 ED Decision to Admit Stat Ordered Studies 04/09/24 10:44 CT abd pelvis IV con only Stat Hospital Course (1) S/P laparoscopic cholecystectomy: This is a 23y F who underwent a laparoscopic cholecystectomy with Dr. Kwan on 04/05/24 who presented to the [facility] ED on 04/09 with concerns for abdominal pain, nausea/vomiting. Workup in the ER with a CT a/p revealed a small fluid accumulations in Morison's pouch and in the cul-de-sac of the pelvis in a patient 4 days status post cholecystectomy. If a bile leak is of clinical concern, consider a nuclear medicine HIDA. Patients labs show wbc 11, stable hgb of 12, with unremarkable LFTs. Patient with discomfort to palpation in RUQ/epigastric region. She was admitted under the surgical service and kept npo with ivf. A HIDA scan was obtained which was negative for bile leak. After HIDA she was given a clear liquid diet. On 04/10 wbc 9 and LFTs remained within normal limits. Her pain was still present, but was overall improved. She provided a history of only utilizing Tylenol and ibuprofen for pain and was offered tramadol to go home with as well. Patient's diet was then advanced as tolerated without worsening symptoms. On 04/10 she was ultimately deemed stable for discharge to home with close follow up in the office with Dr. Kwan. Total Time Total Time Spent Total Time Spent (In Minutes): 15 Discharge Plan Discharge Items Patient Disposition: Home - Self-Care Reason For Visit: S/P LAP SHIRA , N/V, PAIN, RO BILE LEAK Discharge Diagnosis: post operative nausea/vomiting/pain Condition on Discharge: Good Activity: Per Instructions section Lifting: No more than 10 pounds Bathing Comment: you can shower. no soaking in pool/bath for 2 weeks Exercise/Sports: Wait until after follow-up appointment Driving/Machine Use: no driving if taking narcotic pain medication Non-emergency contact: Surgeon Call non-emergency contact if: you have any medication questions, your symptoms worsen, your temperature is above 101.5, your wound has increased redness, your wound has increased drainage and your wound pain has increased Follow-up/Referrals: Fortunato Kwan MD [Physician] - (call office for follow up appointment ) Lynn Zafar PA-C [Primary Care Provider] - Diet: Regular Addtl Attending Provider Instructions: Continue to keep up with your pain medication on discharge* May use Ibuprofen/Tylenol over the counter for pain as tolerated. Do not exceed 3grams of Tylenol per 24 hours . You may need to take the narcotic pain medication in the evening/night. Zofran is a anti-nausea medication that was sent to your pharmacy. You may need to take this prior the narcotic pain medication if you develop upset stomach/nausea. Your urine culture was NEGATIVE for a urinary tract infection. Continue to stay hydrated drinking at least 8 glasses of water daily. If you continue to experience burning or pain with urination please reach out to your PCP. Please call your PCP for a follow up appointment post discharge. Keep your follow up appointment with Dr Hidalgo office. If you do not have a follow up with him schedule please call the General surgical office at [facility] to set this up. SPECIAL CARE INSTRUCTIONS: * You may shower . NO soaking in pools or baths for 2 weeks * No lifting greater than 10lbs. No exercise until cleared by surgeon. Light walking is accepted. * No driving while taking narcotic pain medication * No drinking alcohol while taking narcotic pain medication * Diet Regular Call your doctor if: * Temperature above 101 degrees, nausea/vomiting, fever/chills * Pain not relieved by pain medicine ordered * There is increased drainage or redness from any incision * You have any unanswered questions or concerns. Pending Studies at Discharge: No Stand-Alone Forms: [facility], Work/School Release, Smoking Cessation Medications and DC Order Prescriptions: New ondansetron 4 mg tablet,disintegrating 4 mg PO Q8H PRN (Reason: nausea and vomiting) 4 Days Qty: 7 0RF Rx Instructions: may take prior to narcotic pain medication tramadol 50 mg tablet 50 mg PO Q8H MDD 3 tabs daily Qty: 5 0RF Continued acetaminophen 500 mg Tablet 500 mg PO Q6H PRN (Reason: Pain) cyproheptadine 4 mg tablet 4 mg PO DAILY calcium carbonate 500 mg calcium (1,250 mg) Tablet 500 mg PO DAILY ferrous sulfate 325 mg (65 mg iron) Tablet 325 mg PO DAILY ibuprofen 200 mg Tablet 200 mg PO Q6H PRN (Reason: Pain) norelgestromin-ethin.estradiol 150-35 mcg/24 hr patch weekly 1 patch topical WK escitalopram oxalate 10 mg tablet 10 mg PO DAILY Discontinued oxycodone-acetaminophen [Percocet] 5-325 mg tablet 1 tab PO Q6H PRN (Reason: pain) Qty: 10 0RF Discharge Orders: Discharge Order (Routine); Ordered 04/10/24 Ordered By: Bharti Birch Admission Data Admit Date/Time: 04/09/24 14:54 Attending Provider: Sherman Robin Admit Provider: Sherman Robin Primary Care Provider: Lynn Zafar Other Providers: Sherman Robin Other Interventions: Discharge Summary Assessment (RN) Last Done: 04/10/24 12:57 Coding Level of Care Code 50017 IN/OBS DISCH 30 MIN/LESS Diagnoses S/P laparoscopic cholecystectomy Z90.49
== END 2024-04-10 17:53 | disposition home or self-care (01) ==
LOC: EDINP 08:48 → ED 08:48 → 3N 20:00